=== PATIENT | male | born 1975 | race Caucasian/White ===

== ENCOUNTER 2018-01-26 09:30 | Inpatient (IN) | payer OTHER ==
[~2018-01-26] VITALS: Ht 193 cm; Wt 136.7 kg
--- NOTE | 2018-01-26 09:39 | ED PSYCHIATRIC COMPLAINT ---
History of Present Illness General Chief Complaint: Psychiatric Related Complaint Stated Complaint: DEPRESSION Source: patient, old records, EMS Exam Limitations: no limitations Vital Signs & Intake/Output Vital Signs & Intake/Output Vital Signs Date Time Temp Pulse Resp B/P B/P Pulse O2 O2 Flow FiO2 Mean Ox Delivery Rate 01/26 1417 98.2 86 18 127/61 96 Room Air 01/26 0946 98.8 95 18 160/81 95 Room Air Allergies Coded Allergies: No Known Allergies (01/26/18) Triage Nurses Notes Reviewed? yes HPI: Patient presents with increasing depression, suicidal thoughts and racing thoughts worsening over the past few weeks. Patient states he has been intermittently compliant with his medications. Patient also states that he has had a sharp pain to the left anterior portion of his chest that has been constant for the past 2 days. There is no radiation. No aggravating or mitigating factors. He denies any shortness of breath. He rates the pain as moderate on the pain scale. (Juanpablo GIBBONS,Sander Solorio) Past History Medical History Any Pertinent Medical History? see below for history Cardiovascular: CAD, hypertension, hyperlipidemia Psychiatric: schizophrenia Surgical History Surgical History: non-contributory Psychosocial History Tobacco Use: Never used ETOH Use: denies use Illicit Drug Use: denies illicit drug use Family History Hx Contributory? No (Juanpablo GIBBONS,Sander Solorio) Review of Systems Review of Systems Constitutional: Reports: no symptoms. EENTM: Reports: no symptoms. Respiratory: Reports: no symptoms. Cardiovascular: Reports: see HPI, chest pain. GI: Reports: no symptoms. Genitourinary: Reports: no symptoms. Musculoskeletal: Reports: no symptoms. Skin: Reports: no symptoms. Neurological/Psychological: Reports: see HPI. Hematologic/Endocrine: Reports: no symptoms. Immunologic/Allergic: Reports: no symptoms. All Other Systems: Reviewed and Negative (Juanpablo GIBBONS,Sander Solorio) Physical Exam Physical Exam General Appearance: well developed/nourished, mild distress Head: atraumatic Eyes: Bilateral: PERRL, EOMI. Ears, Nose, Throat: normal pharynx, normal ENT inspection, hearing grossly normal Neck: normal inspection, supple Respiratory: normal breath sounds, chest non-tender, no respiratory distress, lungs clear Cardiovascular: regular rate/rhythm Gastrointestinal: normal bowel sounds, soft, non-tender Extremities: normal range of motion Neurological/Psychiatric: no motor/sensory deficits, awake, alert, calm, oriented x 3 Appearance/Memory/Insight: appropriate appearance, appropriate insight Behavoir/Eye Contact/Speech: cooperative, increased rate of speech, good eye contact Thoughts/Hallucinations: RACING THOUGHTS Skin: intact, normal color, warm/dry SAD PERSONS Done? CRISIS CONSULT OBTAINED (Juanpablo GIBBONS,Sander Solorio) Progress Differential Diagnosis: drug intoxication, drug overdose, drug withdrawal, electrolyte abnormality Plan of Care: Orders Procedure Date/time Status Heart Healthy Diet 01/26 L Active TROPONIN LEVEL 01/26 1447 Complete EKG 01/26 144 Active Continuous Observation Monitor 01/26 937 Active URINE DRUGS OF ABUSE 01/26 937 Complete TROPONIN LEVEL 01/26 937 Complete ETHANOL 01/26 937 Complete COMPREHENSIVE METABOLIC PANEL 01/26 937 Complete CBC WITHOUT DIFFERENTIAL 01/26 937 Complete EKG 01/26 937 Active ED CRISIS PSYCH CONSULT 01/26 937 Active Current Medications Sig/Kenny Start time Last Medication Dose Stop Time Status Admin Lorazepam 1 MG ONE ONE 01/26 1515 CAN (Ativan) 01/26 1516 Laboratory Tests 01/26/18 1451: Troponin I < 0.01 01/26/18 1414: Urine Opiates Screen < 100, Methadone Screen 44, Barbiturate Screen < 60, Ur Phencyclidine Scrn < 6.00, Amphetamines Screen < 100, U Benzodiazepines Scrn 188 , Urine Cocaine Screen 72, Urine Cannabis Screen < 5.00 01/26/18 0959: Anion Gap 9, Estimated GFR > 60, BUN/Creatinine Ratio 22.5, Glucose 87, Calcium 9.9, Total Bilirubin 0.5, AST 20, ALT 25, Alkaline Phosphatase 52, Troponin I < 0.01, Total Protein 7.4, Albumin 4.7, Globulin 2.7, Albumin/Globulin Ratio 1.7, CBC w Diff NO MAN DIFF REQ, RBC 5.40, MCV 89.4, MCH 29.9, MCHC 33.4, RDW 13.6, MPV 7.7, Gran % 55.0, Lymphocytes % 29.3, Monocytes % 12.2 H, Eosinophils % 2.9 , Basophils % 0.6, Absolute Granulocytes 3.9, Absolute Lymphocytes 2.1, Absolute Monocytes 0.9 H, Absolute Eosinophils 0.2, Absolute Basophils 0, Serum Alcohol < 10.0 Initial ED EKG: SR, 1MM ST ELEVATION ANTERIOR, NO ST DEPRESSIONS, NO OLD TO COMPARE Rhythm Strip: normal sinus rhythm Hand-Off Endorsed To: Stef Martinez DO Endorsed Time: 1300 Pending: consult Comments: Pain is been constant for 2 days. The patient states that it is remained at the same intensity. It is not accentuated in intensity and there is been no time over the 2 days that he's been without pain. His first enzymes are negative. If this chest pain were secondary to a cardiac event status troponin should've been elevated by this time. (Juanpablo GIBBNOS,Sander Solorio) Departure Departure Disposition: STILL A PATIENT Condition: Stable Clinical Impression Primary Impression: Schizophrenia Secondary Impressions: Chest pain, unspecified Departure Forms: Customer Survey General Discharge Information (Juanpablo GIBBONS,Sander Solorio) Departure Comments 01/26/18 4;32PM The patient was signed out to me by Dr. Geronimo. He is pending disposition and evaluation by crisis. (Stef Martinez DO)
[2018-01-26 10:07] LABS: ABSOLUTE BASOPHIL COUNT 0 /CUMM (0.0-0.2); ABSOLUTE EOSINOPHIL COUNT 0.2 /CUMM (0.0-0.7); ABSOLUTE GRANULOCYTE CT 3.9 /CUMM (1.4-6.5); ABSOLUTE LYMPH COUNT 2.1 /CUMM (1.2-3.4); ABSOLUTE MONOCYTE COUNT 0.9 /CUMM (0.10-0.60); BASOPHIL % 0.6 % (0.0-2.0); EOSINOPHIL % 2.9 % (0-5); HEMATOCRIT 48.3 % (42-52); MEAN CORPUSCULAR HGB 29.9 PG (27.0-31.0); MEAN CORPUSCULAR HGB CONC 33.4 G/DL (33.0-37.0); MEAN CORPUSCULAR VOLUME 89.4 FL (80.0-94.0); MEAN PLATELET VOLUME 7.7 FL (7.4-10.4); PLATELET COUNT 225 /CUMM (130-400); RBC DISTRIBUTION WIDTH 13.6 % (11.5-14.5); WHITE BLOOD CELL COUNT 7.1 /CUMM (4.8-10.8)
--- NOTE | 2018-01-26 15:01 | ED PSY CRISIS COLLATERAL NOTE ---
Collateral Note Collateral Note Family/Inform/Makayla Contacts: Nursing Home Manager spoke to Keyonna Beard LCSW at [facility] . Pt came in for an intake appointment and reported auditory hallucinations and suicidal ideations. pt states "I want to " he also reports sleep difficulty explaining he hasn't slept in five days. Pt presented with anxious feeling, shaking, with racing thoughts. Pt endorsed suicidal ideation with no plan. Also he mentioned he lived with his elderly aunt in [place] in Senior Disabled housing and he was asked to leave or they both would be evicted. Pt chose to leave and now he is homeless. 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 Pt states that he is clean and sober today as he was just released from [facility], his length of stay was 50 days.
--- NOTE | 2018-01-26 15:18 | ED PSYCH CRISIS CONSULTATION ---
Crisis Consult Basic Assessment Date of Consult: 01/26/18 Responsible Person/Accompanied By: Self Insurance Authorization: Insurance #1: Insurance name: SEBASTIAN GUPTA Phone number: Policy number: [id number] Group number: Authorization number: ED Provider: Patient's ED Provider: Stef Martinez DO Primary Care Physician: Patient's PCP: Patient Has No Primary Care Dr PCP's Phone Number: Current Psychiatrist: Nasir Paez MD Chief Complaint: Psychiatric Related Complaint Patient's Quote: I'm still anxious and I have racing thoughts I don't want to live anymore" Present Illness: Pt is a 42 year old male BIBA from [facility]. Pt was sent to the ED by Keyonna Beard from [facility]. Pt was at [facility] today for an intake and he endorsed suicidal thoughts. Pt reports having auditory hallucinations, " I constantly hear 3 voices all at the same time". Pt states my thoughts are racing and "I don't want to live anymore". Pt does not have a plan and denies any suicide attempt in the past. Precipitant, multiple stressors and an exhausterbation of psychotic symptoms. Pt reports he was living with his elderly aunt in Senior Disabled Housing in [place] and he was asked to leave to avoid his aunt being evicted from her home. Pt states last year he had open heart surgery (triple bypass) after 5 heart attacks. Pt states "my heart is functioning at 30%". Pt reports he hasn't slepted in 5 days and he is constantly feeling anxious. Pt was alert and oriented. He reports feeling anxious, scared, lost, helpless and depressed. "I'm still anxous with racing thoughts and I have nowhere to live " he said. Pt continued to reports hearing voices and feeling suicidal. Pt reports he was discharged from [facility] treatment program on 01/23/18. He spent 50 days at [facility] and before that he was at [facility] twice for psychotic symptoms. He was discharged to [facility] in [place] but he did not attend the program. Also, he reports he was referred to [facility] for skilled nursing care and he "couldn't get in". Pt reports he has a history of the following diagnoses Schizophrenia Bipolar Type, ADHD, and PTSD. Pt states he is prescribed the medication Xanax XR for anxiety. Pt is requesting inpatient admission to address the symtoms of racing thoughts and AH, along with the worsening depression and sucidal ideation. Patient's Address: [address] [place] [address] Other Phone Number: Who Do You Live With? Other (see notes) (Homeless) Family/Informants Interviewed: Phone contact with Care worker see collateral note. Allergies - Coded Allergies: No Known Allergies (01/26/18) Laboratory Results: Laboratory Tests 01/26/18 1451: Troponin I Pending 01/26/18 1414: Urine Opiates Screen < 100, Methadone Screen 44, Barbiturate Screen < 60, Ur Phencyclidine Scrn < 6.00, Amphetamines Screen < 100, U Benzodiazepines Scrn 188 , Urine Cocaine Screen 72, Urine Cannabis Screen < 5.00 01/26/18 0959: Anion Gap 9, Estimated GFR > 60, BUN/Creatinine Ratio 22.5, Glucose 87, Calcium 9.9, Total Bilirubin 0.5, AST 20, ALT 25, Alkaline Phosphatase 52, Troponin I < 0.01, Total Protein 7.4, Albumin 4.7, Globulin 2.7, Albumin/Globulin Ratio 1.7, CBC w Diff NO MAN DIFF REQ, RBC 5.40, MCV 89.4, MCH 29.9, MCHC 33.4, RDW 13.6, MPV 7.7, Gran % 55.0, Lymphocytes % 29.3, Monocytes % 12.2 H, Eosinophils % 2.9 , Basophils % 0.6, Absolute Granulocytes 3.9, Absolute Lymphocytes 2.1, Absolute Monocytes 0.9 H, Absolute Eosinophils 0.2, Absolute Basophils 0, Serum Alcohol < 10.0 Past History Past Medical History Neurological: NONE EENT: NONE Cardiovascular: CAD, hypertension, hyperlipidemia Respiratory: NONE Gastrointestinal: NONE Hepatic: NONE Renal: NONE Musculoskeletal: degen joint disease Psychiatric: anxiety, bipolar disease, depression, psychosis, schizophrenia, SCHIZOAFFECTIVE ADHD Endocrine: NONE Blood Disorders: NONE Cancer(s): NONE 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 Past Surgical History Surgical History: non-contributory Psychosocial History Strengths/Capabilities: Pt motivate for treatment Physical Limitations (Interventions): None reported Psychiatric Treatment History Psych Treatment Psychiatric Treatment Yes Inpatient Treatment Yes Outpatient Treatment Yes Location of Treatment [facility] Reason for Treatment Psychosis Depression Anxiety Dates of Treatment Unknown Response to Treatment Pt did not follow up with IOP recommendation Diagnosis by History: Schizophrenia with Bipolar Disorder ADHD PTSD Substance Use/Abuse History Drug Use/Abuse Substances Used/Abused Yes Substance Used/Abused Crack Cocaine First Use Age 17 Last Used 2 months ago How much used/taken Unknown How often Daily For how long On and off for years Route of use Smoke Substance Abuse Treatment Substance Abuse Treatment Past Substance Abuse TX Yes Inpatient Treatment Yes Outpatient Treatment No Location of Treatment [place] Reason for Treatment Crack Cocaine Use Dates of Treatment November, Response to Treatment Pt did not follow up with IOP recommendation. Current Mental Status Mental Status Orientation: Person, Place, Situation Affect: Anxious, Depressed, Hopeless, Lonely, Sad Speech: Mumbled, Soft Neuro-vegetative: Helpless, Sleep Disturbance Appearance Appearance- Dress/Hygiene: Unshaven, not groomed poor hygiene Behaviors Thought Process: Disorganized Thought Content: Auditory Hallucinations, Somatic Memory: WNL Insight: Fair SI/HI Risk Assessment Past Suicidal Ideation/Attempts Yes Current Suicidal Ideation/Att Yes Past Homicidal Ideation/Att: No Current Homicidal Ideation/Attempts No Degree of Intent: States Intent Danger To: Self Gravely Disabled: Poor Judgment Risk Factors: chronic/serious med cond., high anxiety/distress, SA/MH hospitalized, substance abuse, male, limited support Lethality Ratin PTSD Checklist PTSD Score: PTSD Score: Response Value Disturbing memories,thoughts,images of stressful experience? Moderately 3 Disturbing dreams of stressful experience from past? Moderately 3 Suddenly acting/feeling as if reliving stressful experience? Moderately 3 Unpleasant feeling when reminded of stressful experience? Moderately 3 Physical reactions when reminded of stressful experience? Moderately 3 Avoid thinking/talking of stressful exp. to avoid reactions? Moderately 3 Avoid activities/situations that remind of stressful exp.? Moderately 3 Trouble remembering important parts of stressful experience? Moderately 3 Loss of interest in things that you used to enjoy? Moderately 3 Feeling distant or cut off from other people? Moderately 3 Feeling emotionally numb/unable to love those close to you? Moderately 3 Feeling as if your future will somehow be cut short? Moderately 3 Trouble falling or staying asleep? Moderately 3 Feeling irritable or having angry outbursts? Moderately 3 Having difficulty concentrating? Moderately 3 Being super alert or watchful on guard? Moderately 3 Feeling jumpy or easily startled? Moderately 3 Total 51 ED Management Sitter: No Restraints: No DSM5/PS Stressors/Medical Prob Diagnosis' (DSM 5, Stressors, Medical): F32.9 Depressive Disorder Unspecified, F29 Schizophrenia spectrum and other psychotic disorders Hypertension, Hyperlipidemia, CAD, Hx of Triple Bypass Surgery Current GAF: 20 Departure Disposition Psych Medical Clearance Date: 01/26/18 Medically Cleared at: 1000 Time Started: 1425 Time Ended: 1445 Psychiatrist Consulted: Nasir Paez MD Date Disposition Established: 01/26/18 Time Disposition Established: 170 Plan for Disposition - Modality: Inpatient Psychiatry Facility: [facility] Follow-up Appt Date: 01/26/18 Follow-Up Appt Time: 1900 Contact: [facility] Telephone: [phone] Rationale for Disposition: Pt presents to the ED with suicidal ideation with symptoms of severe depression anxiety racing thoughts and reports of hearing voices. Pt meets criteria for inpatient admission. Type of IP Admission: Voluntary Referrals Patient Has No Primary Care Dr (PCP/Family)
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
[2018-01-26 20:03] VITALS: BP 118/87
--- NOTE | 2018-01-26 21:28 | History & Physical ---
General Information and HPI MD Statement: I have seen and personally examined FEI DAVE and documented this H&P. The patient is a 42 year old M who presented with a patient stated chief complaint of difficulty sleeping and hallucinations History of Present Illness: 42 year-old with extensive psychiatric history presents with hallucinations and insomnia x4 days. Significant premature cardiac disease with systolic heart failure (likely ischemic), multiple PCI's in past, and need for emergent CABG x4 just last year in [place], an episode further complicated by sternal wound infection ultimately requiring sternal wound debridement and wound vac placement. Recently moved up here and is essentially homeless. Recently increased with Coreg dose to 12.5 BID, will need repeat echo in about 8 weeks; if EF remains sub 30% he will have AICD placed. 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 Other (with aunt in group home) Primary Language: Solomon Islander Smoking Status: Unknown If Ever Smoked ETOH Use: denies use, occasional use Illicit Drug Use: denies illicit drug use, cocaine Living Will? unknown Employment History Employment Disability Review of Systems Review of Systems Constitutional: Reports: see HPI. Denies: no symptoms. EENTM: Denies: no symptoms. Cardiovascular: Reports: chest pain (occasional with anxiety). Denies: no symptoms. Respiratory: Denies: no symptoms. GI: Reports: vomiting. Denies: no symptoms. Exam & Diagnostic Data Last 24 Hrs of Vital Signs/I&O Vital Signs Date Time Temp Pulse Resp B/P B/P Pulse O2 O2 Flow FiO2 Mean Ox Delivery Rate 01/26 2003 97.4 92 118/87 01/26 1853 98.1 85 18 130/87 98 Room Air 01/26 1417 98.2 86 18 127/61 96 Room Air 01/26 0946 98.8 95 18 160/81 95 Room Air Intake & Output 01/26 1600 01/26 0800 01/26 0000 Intake Total Output Total 600 Balance -600 Output, Urine 600 Patient 136.078 kg Weight Weight Reported by Patient Measurement Method stable vital sings Physical Exam General Appearance Alert, Oriented X3, Cooperative Skin No Significant Lesion Skin Temp/Moisture Exam: Warm/Dry Sepsis Skin Exam (color): Normal for Ethnicity HEENT Atraumatic, PERRLA, EOMI Neck Supple, No JVD, No thryomegaly Lymphatic Axillary nl, Cervical nl Cardiovascular Normal S1, Normal S2 Lungs Clear to Auscultation Abdomen Soft, No Tenderness, No Hepatospenomegaly, No Masses Neurological Normal Gait, Normal Speech Extremities No Clubbing, No Cyanosis, No Edema Vascular Normal Pulses, Pulses Symmetrical Assessment/Plan Assessment: 42 year-old with extensive psychiatric history presents with hallucinations and insomnia x4 days. Significant premature cardiac disease with systolic heart failure (likely ischemic), multiple PCI's in past, and need for emergent CABG x4 just last year in [place], an episode further complicated by sternal wound infection ultimately requiring sternal wound debridement and wound vac placement. Recently moved up here and is essentially homeless. Recently increased with Coreg dose to 12.5 BID, will need repeat echo in about 8 weeks; if EF remains sub 30% he will have AICD placed. As Ranked By This Provider Problem List: 1. Schizophrenia 2. Chest pain, unspecified Core Measures/Misc (02/19) Acute Coronary Syndrome ACS Diagnosis: No Congestive Heart Failure Congestive Heart Failure Diagnosis No Cerebrovascular Accident CVA/TIA Diagnosis: No VTE (View Protocol) VTE Risk Factors No risk factors No Mechanical VTE Prophylaxis d/t LowRisk-No Interven Req'd No VTE Pharm Prophylaxis d/t LowRisk-No Interven Req'd Sepsis (View protocol) Sepsis Present: No If YES complete Sepsis Event Note If YES complete Sepsis Event Note Attending MD Review Statement Attending Statement Attending MD Statement: examined this patient, reviewed EMR data (avail), discussed with nursing Attending Assessment/Plan: Will continue usual outpatient medications including Coreg 12.5mg BID, aspirin 81mg daily, Plavix 75mg daily, Lasix 20mg daily, spironolactone 12.5mg daily, lisinopril 10mg daily. No evidence of active CAD at this time. Results of evaluation reviewed with nursing on unit.
[2018-01-26] MEDS ORDERED: ALDACTONE25 MG PO (21:35)
[2018-01-26] MEDS ORDERED: NITROGLYCERIN0.4 M1 SL (21:36)
[2018-01-26] MEDS ORDERED: FUROSEMIDE20 M1 PO (21:37)
[2018-01-26] MEDS ORDERED: LISINOPRIL20 M1 PO (21:39)
[2018-01-26] MEDS ORDERED: PRAVACHOL80 M1 PO (21:40)
[2018-01-26] MEDS ORDERED: PROAIR HFA8.5 GM (21:44)
[2018-01-26] MEDS ORDERED: ASPIRIN EC81 M1 PO (21:44)
[2018-01-26] MEDS ORDERED: VIIBRYD40 M1 PO (21:45)
[2018-01-26] MEDS ORDERED: PERPHENAZINE8 M1 PO (21:47)
[2018-01-26] MEDS ORDERED: LATUDA120 M1 PO (21:48)
[2018-01-26] MEDS ORDERED: COREG12.5 M1 PO (21:49)
[2018-01-26] MEDS ORDERED: HYDROXYZINE HCL50 M1 PO (21:50)
[2018-01-26] MEDS ORDERED: GABAPENTIN800 M1 PO (21:51)
[2018-01-26] MEDS ORDERED: NEURONTIN800 M2 PO (21:51)
[2018-01-26] MEDS ORDERED: PLAVIX75 M1 PO (21:52)
[2018-01-26] MEDS ORDERED: STRATTERA PO (21:53)
[2018-01-26] MEDS ORDERED: BUSPIRONE HCL15 M1 PO (21:54)
[2018-01-26] MEDS ORDERED: PROTONIX40 M3 PO (21:55)
[2018-01-26] MEDS ORDERED: MELATONIN10 M2 PO (21:56)
[2018-01-27 07:54] VITALS: BP 128/97
--- NOTE | 2018-01-27 09:06 | CPS PROVIDER INIT ASMT PSYCH ---
Psychiatric Admission It Quality Assurance Analyst's Note Reviewed: Yes Patient Seen and Examined: Yes Identifying Information: Pt is a 42 year old male BIBA from [facility] Chief Complaint: Patient's Quote: I'm still anxious and I have racing thoughts I don't want to live anymore" Reaction to Hospitalization: Patient was admitted voluntarily History of Present Illness Onset of Illness: Since age 17 Circumstances Leading to Admission: Pt is a 42 year old male BIBA from [facility]. Pt was sent to the ED by Keyonna Beard from [facility]. Pt was at [facility] today for an intake and he endorsed suicidal thoughts. Pt reports having auditory hallucinations, " I constantly hear 3 voices all at the same time". Pt states my thoughts are racing and "I don't want to live anymore". Pt does not have a plan and denies any suicide attempt in the past. Precipitant, multiple stressors and an exhausterbation of psychotic symptoms. Pt reports he was living with his elderly aunt in Senior Disabled Housing in [place] and he was asked to leave to avoid his aunt being evicted from her home. Pt states last year he had open heart surgery (triple bypass) after 5 heart attacks. Pt states "my heart is functioning at 30%". Pt reports he hasn't slepted in 5 days and he is constantly feeling anxious. Problem(s) Justifying Need for Admission: See above Past Psychiatric History Past Diagnosis(es)- if any: F32.9 Depressive Disorder Unspecified, F29 Schizophrenia spectrum and other psychotic disorders Hypertension, Hyperlipidemia, CAD, Hx of Triple Bypass Surgery Past Precipitating Factors- if any: Pt reports he was living with his elderly aunt in Senior Disabled Housing in [place] and he was asked to leave to avoid his aunt being evicted from her home. - Include inpatient and outpatient treatment Treatment History: [facility]. Pt reports he was discharged from [facility] treatment program on 01/23/18. He spent 50 days at [facility] and before that he was at [facility] twice for psychotic symptoms. He was discharged to [facility] in [place] but he did not attend the program. 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 History of Suicide Attempts or Gestures Patient has a chronic and recurrent thoughts of suicide but no actual suicide attempts Substance Abuse History: History of crack cocaine use Allergies: Coded Allergies: No Known Allergies (01/26/18) Home Med List: Extensive list of home medications please see the medication reconciliation section part of the medical record - Include any medical condition(s) that may - impact the patient's recovery/remission Past Medical History: History of heart attacks/coronary artery disease and bypass surgery Past History Medical History Neurological: NONE EENT: NONE Cardiovascular: CAD, CHF, hypertension, hyperlipidemia Respiratory: NONE, asthma Gastrointestinal: NONE Hepatic: NONE Renal: NONE Musculoskeletal: degen joint disease Psychiatric: anxiety, bipolar disease, depression, psychosis, schizophrenia, SCHIZOAFFECTIVE ADHD Endocrine: hypoglycemia Blood Disorders: NONE Cancer(s): NONE 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: 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 History of MRSA: No History of VRE: No History of CDIFF: No Isolation History: Standard Surgical History Surgical History: unobtainable Psychiatric Family/Social Hx Family History Psychiatric Illness: no psychiatrist Substance Use: Dad was alcoholic, and gradnparents on both sides Suicides: no suicides Social History Living Situation: homeless as of yesterday Significant Relationships (family/friends): great aunt, 90 and having dementia Education: 1 year of College, in [place] Vocation/Occupation: last wroked Jul 2014, [employer] for 20 years Legal: incarcerate 3 times, no current legal issues Healthly Behaviors Screening Tobacco Screening Tobacco Use from ED Docu: Never used - If tobacco counseling indicated - the following topics are required. - #1 Recognizing dangerous situations. - #2 Coping Skills. - #3 Basic information about quitting. Status of Tobacco Cessation Counseling: Not Applicable Cessation Med Status Not Applicable Alcohol Screening - ETOH screen POS if BAL >=80 or Audit-C>= M4/F3 Audit-C Score from Diag Assess: 2 Blood Alcohol Level: Laboratory Tests 01/26 0959 Toxicology Serum Alcohol (<10 MG/DL) < 10.0 Alcohol Use Screening Results: Neg per Audit C &/or BAL - If ETOH counseling indicated - the following topics are required. - #1 Express concern about the patient's - drinking at unhealthy levels, include informing - of national norms for moderate drinking: - men <= 14 drinks/week, max 4 drinks/occasion - women <= 7 drinks/week, max 3 drinks/occasion - #2 Providing feedback, including linking alcohol to - negative physical effects (liver injury, hypertension) - negative emotional effects (relationship problems and - depression) - negative occupational consequences (reduced work - performance) - #3 Advising the patient to abstain from alcohol or - to drink below national norms for moderate drinking - (as listed above). Status of ETOH Use Counseling: N/A B/C NO ETOH Use Metabolic Screening - Screen if on a Neuroleptic Medication - Metabolic screening should include: - Blood Pressure, BMI, Glucose or Hgb A1c, & a - Lipid profile from within the past 365 days. Metabolic Screening Patient on a neuroleptic(s) . Enter below results for Hemoglobin A1C, and lipid panel if obtained during the last 365 days. BMI: 36.600 Blood Pressure: 107/62 Laboratory Results From [facility] (If applicable): will be ordered Exam and Plan Mental Status Examination Ambulation Status: Patient was steady in his gait Appearance: Unremarkable Attitude towards examiner: Calm and cooperative Psychomotor activity: Reduced psychomotor activity Behavior: No abnormal or bizarre behaviors Quality of speech: Normal speech Affect: Constricted affect Mood: Depressed mood Suicidal Ideation: He reported having thoughts of suicide Homicidal Ideation: He denied having violent thoughts or thoughts of homicide Hallucinations: He endorsed auditory hallucinations Paranoid/Delusional Material: Denied feeling paranoid, there were no delusions during the interview Difficulties with thought organization: He was coherent, no thought disorder Insight: Partial insight Judgment: Impaired judgment Orientation: Alert and oriented to time place and person. Cognition: No difficulties with information processing Memory Function: No short-term memory impairments Estimate of intellectual functioning: Average Assets/Strengths Patient Identified Assets/Strengths: Patient is resourceful, seems to have good impulse control Impression/Plan Impression and Plan: 42-year-old single white male who was admitted because of reporting auditory hallucinations and thoughts of suicide. The presentation is suspicious because the patient's found himself homeless a day or 2 ago after he found out that he could not stay with his aunt who has subsidized housing patient does have long history of psychiatric illness and has been with [facility] - Include all active medical diagnosis that require tx DSM 5 Diagnosis(es): F32.9 Depressive Disorder Unspecified, F29 Schizophrenia spectrum and other psychotic disorders Hypertension, Hyperlipidemia, CAD, Hx of Triple Bypass Surgery - Initial Tx Plan for Active Psych & Medical Conditions Treatment Plan: Inpatient psychiatric care with safety checks every 15 minutes Increase Trilafon to 8 mg in the morning and 60 mg at bedtime Reduce Latuda to 80 mg suppertime Discontinue BuSpar Discontinue Strattera Otherwise resume all medications as per his outpatient providers - Factors that would help patient function - in a less restrictive setting. Factors: The patient would be discharge once he denies suicidal ideation
[2018-01-27 20:08] VITALS: BP 121/77
--- NOTE | 2018-01-27 21:09 | SOCIAL WORKER PROG NOTE PSYCH ---
Social Work Progress Note Progress Note Attempted to complete Social history with patient. Patient was asleep and did not respond to verbal request to wake up and complete social at this time.
--- NOTE | 2018-01-28 08:36 | CP SOUTH PROGRESS NOTE PSYCH ---
Psych (Inpt) Progress Note Progress Note Laboratory Tests 01/28 Chemistry Hemoglobin A1c (4.2 - 5.8 %) Pending Triglycerides (<150 mg/dL) 365 H Cholesterol (< 200 MG/DL) 254 H LDL Cholesterol, Calc (65 - 129 mg/dL) 139 H HDL Cholesterol (40 - 60 mg/dL) 42 Cholesterol/HDL Ratio (0.00 - 4.88 %) 6 H Vital Signs Date Time Temp Pulse Resp B/P B/P Pulse O2 O2 Flow FiO2 01/28 1216 97.5 92 18 12201/28 0855 97.5 92 18 12201/28 0854 97.5 92 18 12201/28 0854 97.5 92 18 12201/28 0846 97.5 92 01/27 2223 99 12177 01/28 2008 98.0 99 Mental Status Examination The patient is still complaining about feeling hopeless and depressed. He also reports high anxiety. Patient was steady in his gait He showed dysphoric constricted affect. He was calm and cooperative He showed reduced psychomotor activity No abnormal or bizarre behaviors Normal speech He reported having thoughts of suicide, denied having violent thoughts or thoughts of homicide He is still claiming that he is having auditory hallucinations. Denied feeling paranoid, there were no delusions during interview. Partial insight Impaired judgment Alert and oriented to time place and person. No difficulties with information processing No short-term memory impairments Assessment: 42-year-old single white male who was admitted because of reporting auditory hallucinations and thoughts of suicide. The presentation is suspicious because the patient found himself homeless a day or 2 prior to presenting to the emergency department. He found out that he could not stay with his aunt who has subsidized housing patient does have long history of psychiatric illness and has been with [facility] Diagnosis(es): By history: Schizophrenia spectrum and other psychotic disorder Hypertension, Hyperlipidemia, CAD, Hx of Triple Bypass Surgery Treatment Plan: He was asking for trazodone, Adderall, and Xanax, he reported that he has been on it for very long time, I tried educating him about the risk of QTC prolongation with his cardiac history to no avail Restart trazodone at 100 mg at bedtime Increase lisinopril to 20 mg daily One-time dose of Librium 50 mg times once Change gabapentin to 900 mg in the morning, 900 afternoon and 1800 mg at bedtime Continue Trilafon 8 mg in the morning and 16 mg at bedtime Latuda 80 mg suppertime Continue all other medications unchanged
[2018-01-28 08:46] VITALS: BP 122/82
[2018-01-28 22:02] VITALS: BP 98/59
[2018-01-29 07:50] VITALS: BP 108/70
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
--- NOTE | 2018-01-29 15:24 | SOCIAL WORKER PROG NOTE PSYCH ---
Social Work Progress Note Progress Note Marco presented with a depressed/ anxious presentation today. He reports feeling hopeless and helpless about his current situation. He reports being recently homeless with no income. States he doesn't know how to help himself anymore and he just feels like giving up and "ending it." Reports not feeling safe on the unit, but states he won't harm himself here and would talk to someone if needed. Feels distressed over voices he is hearing. Reports hearing 3 voices that are "tearing me down." Reports that they say negative comments to him throughout the day. Marco states he feels like he is going to have a "break down" either mentally or he is going to have another heart attack. He has a hx of significant heart problems having had several heart attacks starting in his late 's. He had open heart surgery last February. He reports he gets turned down by programs due to them having concerns about him medically. He shared that he came up from [place] in October to help his Aunt. He was living with his Mother previously. He was supposed to stay at a [facility], but then the friend ended up having to move and he needed to leave and was left with no where to go. Reports staying with his Aunt for a brief time, but she can't have anyone in there due to rules of senior housing. He reports having no other supports at this time. He said his Mother in [facility] is not speaking to him, due to his relapse on crack cocaine. He has been clean for the past 50 days after getting tx at [facility]. He stated that he only uses to get rid of the voices and when he is on his meds he is doing well. Appears distressed today and highly anxious- rating anxiety at a 9 1/2 out of 0-10, 10 being most severe. States his mind is racing and he is having chest pains. Encouraged him to focus on the present as he is becoming overwhelmed with thinking about everything he has going on. He signed releases for his city attorney, [facility], and [facility].
--- NOTE | 2018-01-29 16:39 | CP SOUTH PROGRESS NOTE PSYCH ---
Psych (Inpt) Progress Note Progress Note Include the following elements, when applicable: Involvement in the active treatment of the patient with behavioral observations of the patient and the patient's response to the treatment. Review of the ongoing treatment process in the context of the treatment plan. Indication of how multi-disciplinary staff members are carrying out the treatment plan. Plans for future interventions and recommendations for revision of the treatment plan. Liaison with other physicians/providers. Progress Note: ["The voices keeps screaming at me" The patient reports ongoing auditory hallucinations of 3 male voices which speak to him in the second person and argue with each other. They are not command. They tell him "everything that it ever done in my life". The patient reports that he does not want to live anymore but he has no plans by which to take his own life whilst in hospital. He reports "I have lost everything, I cannot look after myself, I have no home, no job and I feel worthless". The patient reports a long psychiatric history. He was doing well while in [place] but left when her friend asked him to move to [place]. His friend apparently then sold his house leaving the patient homeless. The patient lives with his aunt for a time but she is in senior housing and so he again had to move. He became homeless the day of presentation. The patient reports that he does best on a combination of Latuda 160 mg, Seroquel 200 mg, Viibryd 40 mg, Adderall 30 mg 3 times a day and Xanax XR 3 mg twice daily. The patient reports significant legal difficulties. There is a warrant for his arrest for balance checks in [place] and he is also being investigated for elder financial abuse in [place]. The patient has a history of alcohol and cocaine dependence. He has been clean from both for 51 days and denies any cravings. Mental status examination: The patient is an obese 42-year-old male who looks older than his stated age. He was encountered lying on his hospital bed. He was alert and oriented 3 and his gait was steady. Eye contact was good. Speech was normal in rate, rhythm and volume, monotonous. He described his mood as anxious and his affect was mood congruent. There was suicidal ideation but no intent. Thought process was normal in tempo and stream, concrete and form. There were no delusions or obsessions. Attention and concentration were fair. There were auditory hallucinations although the patient was not distracted during the time of interview. Impulse control is fair. Intelligence level is likely average, fund of knowledge average, use of language appropriate. Recent and remote memory were intact. The patient's insight is good. Judgment is unimpaired.] Assessment: 42-year-old mal with a history of schizoaffective disorder maintained on multiple medications. Presented with increase in mood and psychosis in the context of stopping medication due to lack of access to healthcare. The patient is currently homeless. He has suicidal ideation but no intent currently. He reports ongoing auditory hallucinations. The patient has a history of alcohol and cocaine use until 50 days ago. He has significant cardiac history. QTc is 486. Current medications: Albuterol inhaler 2 puffs every 4 hours as needed breathing difficulty Aspirin 81 mg p.o. daily Coreg 12.5 mg p.o. twice daily Chlordiazepoxide 50 mg p.o. nightly Clopidogrel 75 mg p.o. daily Diazepam 10 mg p.o. nightly Furosemide 20 mg p.o. daily Gabapentin 900 mg twice a day and 1800 mg p.o. nightly Lisinopril 20 mg p.o. daily Lurasidone 80 mg at 1730 Metoprolol 25 mg p.o. twice daily Nicotine 21 mg patch Nicotine gum 2 mg every 2 hours as needed craving Perphenazine 8 mg p.o. daily and 16 mg p.o. nightly Spironolactone 12.5 mg p.o. daily Trazodone 100 mg p.o. nightly Vilazodone 40 mg p.o. daily Reason for ongoing admission: The patient was suicidal prior to admission. He has ongoing suicidal ideation as well as auditory hallucinations and significant psychosocial stressors. He is at risk of suicide if discharged prematurely. The patient has not been taking medication for some time and needs to be reestablished on a medication regime. Diagnosis: Per notes from his previous providers the diagnoses are: Schizophrenia chronic, paranoid with acute exacerbation Unspecified anxiety disorder Major depressive disorder Treatment plan: -Discontinue both chlordiazepoxide and diazepam as the patient was not on benzodiazepines prior to admission -Consider increasing lurasidone to previous dose of 160 mg -Suggest caution with as needed nicotine gum as the patient is already taking a 21 mg patch and this may increase his agitation -Education on anxiety management -Reduce as needed lorazepam to 1 mg p.o. orally -If the patient is relocating to this area he will need to be connected with [facility] ED on discharge -Patient will be encouraged to call 211 to connect with housing -Tentative discharge date February 02
--- NOTE | 2018-01-29 18:09 | SOCIAL WORKER PROG NOTE PSYCH ---
Social Work Progress Note Progress Note The services requested require additional review. You will be contacted regarding the status of this request if further information is needed. An authorization decision will be made within the required timeframes and details of that decision may be found under the member's authorization history. Member Name Member ID Member Subscriber Name Subscriber ID FEI DAVE [id number] 1975 FEI DAVE [id number] Pended Authorization # Client Authorization # Type of Request [id number] CONCURRENT Date of Admission/ Start of Services Requested From Submission Date 01/26/2018 01/29/2018 01/29/2018 Level of Service Type of Service Level of Care Type of Care INPATIENT/HLOC Mental Health Inpatient Inpatient [facility] - Inpatient Hospital Reason Code P76 Provider Name & Address Provider ID Provider Alternate ID NPI # for Authorization HUMBERTO CARDOZA [id number] N/A [address] [facility] [id number]
[2018-01-29 20:01] VITALS: BP 112/86
[2018-01-30 07:44] VITALS: BP 133/93
--- NOTE | 2018-01-30 15:42 | CP SOUTH PROGRESS NOTE PSYCH ---
Psych (Inpt) Progress Note Progress Note include the following elements, when applicable: Involvement in the active treatment of the patient with behavioral observations of the patient and the patient's response to the treatment. Review of the ongoing treatment process in the context of the treatment plan. Indication of how multi-disciplinary staff members are carrying out the treatment plan. Plans for future interventions and recommendations for revision of the treatment plan. Liaison with other physicians/providers. Progress Note: Patient discussed at team meeting "I am so anxious, I have nowhere to live" The patient reports intense feelings of anxiety. He marisela with them by isolating "I lie on my bed and shake". Sleep was poor last night although he slept most of the day yesterday. His appetite is good. He does not want to . He reports feeling hopeless and worthless. He is overwhelmed by psychosocial stressors. He reports ongoing auditory hallucinations "they just say bad things". They do not tell him what to do. Notes reveals that the patient is given haloperidol this morning for agitation. Mental status examination: Obese 42-year-old male encountered asleep on his bed. Alert and oriented 3, gait steady. Eye contact good. Speech normal in rate, rhythm, volume and tone. He described his mood is anxious, his affect was mildly anxious; as mentioned he was asleep when encountered. He was not suicidal or homicidal. Thought process was normal in tempo and stream. Thought form was concrete. Thought content was preoccupied with housing. There were no delusions or obsessions. There was no evidence of perceptual abnormality in that the patient was not distracted are responding to internal stimuli during interview although he reported auditory hallucinations. Impulse control is fair. Attention and concentration are fair. Intelligence level is likely average, fund of knowledge average, use of language appropriate. The patient's recent and remote memory are intact. Insight is fair, judgment unimpaired. Assessment: The patient continues to report ongoing anxiety. This is mainly around his homelessness. He is isolating and on the periphery. Encouraged to participate more in the group and use distraction techniques to manage his anxiety. He is not suicidal or homicidal. The patient has a pending disability hearing on February 14. Current medications: Albuterol inhaler 2 puffs every 4 hours as needed breathing difficulty Aspirin 81 mg p.o. daily Coreg 12.5 mg p.o. twice daily Clopidogrel 75 mg p.o. daily Furosemide 20 mg p.o. daily Gabapentin 900 mg twice a day and 1800 mg p.o. nightly Lisinopril 20 mg p.o. daily Lurasidone 80 mg at 1730 Metoprolol 25 mg p.o. twice daily Nicotine 21 mg patch Nicotine gum 2 mg every 2 hours as needed craving Perphenazine 8 mg p.o. daily and 16 mg p.o. nightly Spironolactone 12.5 mg p.o. daily Trazodone 100 mg p.o. nightly Vilazodone 40 mg p.o. daily Reason for ongoing admission: The patient reports feelings of hopelessness and worthlessness. He cannot commit to safety outside the hospital setting. Treatment plan: -No changes in current medications -Encouraged the patient to participate more in the milieu -Distraction techniques to manage anxiety -sawmill relief worker helping with respite accommodation -Tentative discharge date February 02 with follow-up at IOP level of care -
--- NOTE | 2018-01-30 16:19 | SOCIAL WORKER PROG NOTE PSYCH ---
See Addendum Social Work Progress Note Progress Note Marco reported high anxiety today. Stated he is worried about [facility]. We called [facility] together to see about the half-way wait list. We spoke with a gentleman named Roge. He said he is on the active wait list for a half-way, but there is very little turn over. He said to continue to check in with Emily there when she returns from vacation. He had no other suggestions other than to go to [facility]. He would need to be there late afternoon and leave every day at 6am. Marco and I discussed this as an option afterwards and he doesn't feel he can do a half-way where he needs to leave every day at 6am due to his heart condition. He is worried about where he would spend the day and doesn't feel he can do alot of walking. Continues to look hopeless and helpless. Keeps stating he needs help navigating the system. Stated several times "I can't do this anymore."
[2018-01-30 19:49] VITALS: BP 124/79
[2018-01-31 07:57] VITALS: BP 146/98
[2018-01-31 08:18] VITALS: BP 146/98
--- NOTE | 2018-01-31 11:04 | SOCIAL WORKER PROG NOTE PSYCH ---
Social Work Progress Note Progress Note Marco approached staff this morning and shared that his Aunt and him talked and she is allowing him to go live with her temporarily. He stated he wanted to go today. Dr. Joe and I saw Emma together briefly. He was in his room resting. He shared that his Aunt had called him last night and they talked about him staying with her. He reported that he is feeling much better now that he knows he has a place to stay and that he is safe to leave. Described voices as still there, but managable. States the voices are chronic and he is used to living with them. He is happy to return to [facility] for an intake. Offered to call his Aunt with him and he agreed. He called his Aunt Alyssa and put her on speak phone. She explained that she is agreeable to have him stay with her and see how things work out with his disability hearing on 02/14. She doesn't feel it is a problem for him to be with her and described that her and him have a Mother/ son relationship. She asked who would be helping him with housing once he leaves? I told her that he will be referred to [facility] and that they have clinical staff and case management there. She stated that Marco helps her out around the house and that they help eachother. She is 89. She mentioned that her neighbor will roller picker Marco from the hospital today. We planned a time for 1pm. Referral was done for [facility]. Intake is scheduled with Loreta Oconnell Phd. on 02/06 2pm. He will have a "bridge" appt. with Gera GAITAN on 02/09 8:15am with Dr. Case.
--- NOTE | 2018-01-31 12:10 | Patient Discharge Instructions ---
Psych Discharge Inst General Discharge Information Reason for Admission: Suicidal with excerbation of psychosis Psy Discharge Primary Diag+ Schizophrenia Summary Tests/Major Procedures Lab ALT 25 U/L 01/26/18 0959 AST 20 U/L 01/26/18 0959 Albumin 4.7 g/dL 01/26/18 0959 Albumin/Globulin Ratio 1.7 % 01/26/18 0959 Alkaline Phosphatase 52 U/L 01/26/18 0959 Anion Gap 9 01/26/18 0959 BUN 18 mg/dL 01/26/18 0959 BUN/Creatinine Ratio 22.5 % 01/26/18 0959 Calcium 9.9 mg/dL 01/26/18 0959 Carbon Dioxide 23 mmol/L 01/26/18 0959 Chloride 106 mmol/L 01/26/18 0959 Cholesterol 254 MG/DL H 01/28/18 0638 Cholesterol/HDL Ratio 6 % H 01/28/18 0638 Creatinine 0.8 mg/dL 01/26/18 0959 Estimated GFR > 60 ml/min 01/26/18 0959 Globulin 2.7 gm/dL 01/26/18 0959 Glucose 87 mg/dL 01/26/18 0959 HDL Cholesterol 42 mg/dL 01/28/18 0638 LDL Cholesterol, Calc 139 mg/dL H 01/28/18 0638 Potassium 4.8 mmol/L 01/26/18 0959 Sodium 138 mmol/L 01/26/18 0959 Total Bilirubin 0.5 mg/dL 01/26/18 0959 Total Protein 7.4 g/dL 01/26/18 0959 Triglycerides 365 mg/dL H 01/28/18 0638 Troponin I < 0.01 ng/ml 01/26/18 0959 CBC w Diff NO MAN DIFF REQ 01/26/18 0959 Gran % 55.0 % 01/26/18 0959 Hct 48.3 % 01/26/18 0959 Hgb 16.1 G/DL 01/26/18 0959 MCH 29.9 PG 01/26/18 0959 MCHC 33.4 G/DL 01/26/18 0959 MCV 89.4 FL 01/26/18 0959 MPV 7.7 FL 01/26/18 0959 Plt Count 225 /CUMM 01/26/18 0959 RBC 5.40 /CUMM 01/26/18 0959 RDW 13.6 % 01/26/18 0959 WBC 7.1 /CUMM 01/26/18 0959 Studies Pending at DC: None Patient Instructions Contact Information Your Psychiatrist on [facility] was Michelle Joe MD * If you are experiencing an emergency related to this hospitalization, please call [phone] to contact the treating psychiatrist or the psychiatrist-on- call. * To Request a copy of your medical records, please contact the Medical Records Department at [phone]. * To request results of studies pending at the time of discharge, please call [phone]. * Continue your Medications until directed to stop by your Healthcare provider. General Medication Information Please continue to take your new medications and your continued home medications , unless otherwise indicated on your discharge medication list, or unless directed by your MD or BOILER ATTENDANT to stop them. Special Instructions Diet Regular Activity As Tolerated - Tobacco Use Treatment Offered Post DC Medications Offered: Refused Tob Medication Tx Post DC Tobacco Treatment Plan: Refused Tobacco Tx Pgm - EtOH/Drug Use D/O Treatment Offered Post DC Medications Offered: NA-No EtOH/Drug Use D/O Post DC EtOH/SubAbuse TX Plan: NA-No EtOH/Drug Use D/O Advance Directives Does the Patient have Medical Advance Directives No/Refused further info Does Pt have Psychiatric Advance Directives? No/Refused further info Does Patient have a Designated Surrogate Decision Maker: No Information About Psychiatric Advance Directives Provided? Refused Discharge Plan Post Hospital Treatment Plan: Referrred to [facility]
--- NOTE | 2018-01-31 12:10 | DISCHARGE SUMMARY REPORT-PSYCH ---
Visit Information Visit Dates/Diagnosis' Admission Date: 01/26/18 Discharge Date: 01/31/18 Reason for Admission: Suicidal with excerbation of psychosis Psy Discharge Primary Diag: Schizophrenia Hospital Course Significant Lab Findings: Lab Cholesterol 254 MG/DL H 01/28/18 0638 Cholesterol/HDL Ratio 6 % H 01/28/18 0638 HDL Cholesterol 42 mg/dL 01/28/18 0638 Hemoglobin A1c 5.7 % 01/28/18 0638 LDL Cholesterol, Calc 139 mg/dL H 01/28/18 0638 Sodium 138 mmol/L 01/26/18 0959 Triglycerides 365 mg/dL H 01/28/18 0638 Course Consultations: Seen by hospitalist for full review of systems and physical examination on admission Allergies: Coded Allergies: No Known Allergies (01/26/18) Hospital Course/TX Response: The patient presented to the emergency room reporting suicidal ideation and increased psychotic symptoms in the context of homelessness. The patient had been made homeless on the day of presentation. The patient was admitted on a voluntary basis and he is routine medications were recommenced. Routine lab studies were normal. The patient reported auditory hallucinations but did not seem distracted or preoccupied. He later reported that he constantly has auditory hallucinations which are generally not distressing to him. He was extremely anxious during this brief admission and reported that this was mostly due to housing. He spent a lot of time isolated in his room. He was very focused on being homeless and applying for disability. He ate well and was pleasant and appropriate with staff and peers. ADLs were good. Referrals were made and the patient was [facility] at [facility]. On January 31 the patient informed staff that she had contacted his aunt the previous evening and that she had permission for him to live with her while he was waiting for a bed. The patient reported a significant reduction in anxiety and requested discharge. As he was not a harm to himself or others and was not gravely disabled it was agreed that he be discharged to his own home and follow-up with [facility]. As there is significant interval before medication appointment can be made at that facility, he will be given bridging appointment at [facility] outpatient department. At the time of discharge the patient was alert and oriented 3. Eye contact was good, speech was normal in rate, rhythm, volume and tone. He was not suicidal or homicidal. He had baseline auditory hallucinations which were not distressing to him. Thought process was organized. Insight was good and he was motivated for treatment. Discharge HBIPS - Tobacco Use Treatment Offered Post DC Medications Offered: Refused Tob Medication Tx Post DC Tobacco Treatment Plan: Refused Tobacco Tx Pgm - EtOH/Drug Use D/O Treatment Offered Post DC Medications Offered: NA-No EtOH/Drug Use D/O Post DC EtOH/SubAbuse TX Plan: NA-No EtOH/Drug Use D/O Metabolic Screening - Screen if on a Neuroleptic Medication - Metabolic screening should include: - Blood Pressure, BMI, Glucose or Hgb A1c, & a - Lipid profile from within the past 365 days. Metabolic Screening () Not Applicable, patient not on a neuroleptic. OR () Patient on a neuroleptic(s) . Enter below results for Hemoglobin A1C, and lipid panel if obtained during the last 365 days. BMI: 36.600 Blood Pressure: 146/98 Laboratory Results From [facility] EHR (If applicable): Lab Cholesterol 254 MG/DL H 01/28/18 0638 Cholesterol/HDL Ratio 6 % H 01/28/18 0638 HDL Cholesterol 42 mg/dL 01/28/18 0638 Hemoglobin A1c 5.7 % 01/28/18 0638 LDL Cholesterol, Calc 139 mg/dL H 01/28/18 0638 Triglycerides 365 mg/dL H 01/28/18 0638 Discharge Instructions General Discharge Information Multiple Neuroleptics: () Not Applicable OR Document below three failed attempts at monotherapy, or a plan to taper to monotherapy, or augmentation of Clozapine. (The patient has been on 2 neuroleptics for some time. The plan will be to optimize the dose of perphenazine and reduce lurasidone as an outpatient. Ultimately he would hopefully be maintained on one neuroleptic only. ) Discharge Diet Regular Discharge Activity As Tolerated DC Disposition: The patient will go to live with his aunt Referrals Ordered Referrals [facility] 02/06/18 [address], [place] [id number] [facility] intake appt. with Loreta Oconnell 02/06/18 2pm [address] [place], [place] [id number] Provider Referral 02/09/18 For Groups: Outpatient Psychiatry [facility] Bridge appt. for medication with Dr. Case 02/09 8:15am [address] [place] [address] Prescriptions Stop taking the following medications: Hydroxyzine Hydrochloride (Atarax) 50 MG TAB ORAL EVERY 4 HOURS NEEDED as needed for ANXIETY Buspirone HCl (Buspirone HCl) 15 MG TABLET ORAL THREE TIMES DAILY Melatonin (Melatonin) 10 MG TABLET ORAL AT BEDTIME Continue taking these medications: Spironolactone (Aldactone) 25 MG TABLET 1 Tablet ORAL DAILY Comments: Last Taken:01/31/18 Time:8AM Nitroglycerin (Nitroglycerin) 0.4 MG TAB.SUBL 0.4 Milligram SUBLINGUAL as needed for CHEST PAIN Comments: Last Taken:NOT GIVEN IN THE HOSPITAL Time: Furosemide (Furosemide) 20 MG TABLET 1 Tablet ORAL TWICE DAILY Comments: Last Taken:01/31/18 Time:8AM Lisinopril (Lisinopril) 20 MG TABLET 1 Tablet ORAL DAILY Comments: Last Taken:01/31/18 Time:8AM Pravastatin Sodium (Pravachol) 80 MG TABLET 80 Milligram ORAL AT BEDTIME Comments: NOT TAKEN IN [facility] Aspirin (Ecotrin*) 81 MG TABLET.DR 81 Milligram ORAL DAILY Comments: Last Taken:01/31/18 Time:8AM Albuterol Sulfate (Proair Hfa) 90 MCG HFA.AER.AD as needed for RESPIRATORY Comments: Last Taken:NOT USED IN THE HOSPITAL Time: Vilazodone (Viibryd) 40 MG TABLET 40 Milligram ORAL DAILY Comments: Last Taken:01/31/18 Time:8AM Perphenazine (Perphenazine) 8 MG TABLET 8 Milligram ORAL TWICE DAILY Comments: Last Taken:01/31/18 Time:8AM Lurasidone HCl (Latuda) 120 MG TABLET 120 Milligram ORAL DAILY Comments: Last Taken:01/30/18 RECEIVED 80MG Time:5PM Carvedilol (Coreg) 12.5 MG TABLET 12.5 Milligram ORAL TWICE DAILY Comments: Last Taken:01/31/18 Time:8AM Gabapentin (Gabapentin) 800 MG TABLET 800 Milligram ORAL TWICE DAILY Comments: Last Taken:01/31/18 Time:8AM Gabapentin (Neurontin) 800 MG TABLET 1,200 Milligram ORAL AT BEDTIME Comments: Last Taken:01/30/18 Time:8PM Clopidogrel Bisulfate (Plavix) 75 MG TABLET 75 Milligram ORAL DAILY Comments: Last Taken:01/31/18 Time:8AM Atomoxetine HCl (Strattera) 10 MG CAPSULE 20 Milligram ORAL DAILY Comments: Last Taken:NOT GIVEN IN THE HOSPITAL Time: Pantoprazole Sodium (Protonix) 40 MG TABLET.DR 40 Milligram ORAL DAILY Comments: Last Taken:01/31/18 SUBSTITUTED WITH PRILOSEC IN THE HOSPITAL Time:8AM Studies Pending at Discharge None Copies To: ,
--- NOTE | 2018-01-31 16:48 | SOCIAL WORKER PROG NOTE PSYCH ---
Social Work Progress Note Faxed Referral(s) Referred To: [facility] Transition of Care Documents sent: Health Summary Faxed to: [facility] Fax #: [phone] Faxed by: Pinky Marquis Date faxed: 01/31/18 Time Faxed: [phone]
== END 2018-01-31 13:00 | DRG 750 ==
LOC: ERH 09:30 → CP SOUTH 18:25 → ERHI 18:25 → ENTRNSPT 19:06 → EDTRNSPT 19:13 → CMPTRNSPT 19:14 → CP SOUTH 19:16
PROVIDERS: Emergency Medicine; Psychiatry & Neurology Psychiatry
DX: F20.9 Schizophrenia, unspecified (principal); I50.22 Chronic systolic (congestive) heart failure; I11.0 Hypertensive heart disease with heart failure; Z59.0 Homelessness; R07.9 Chest pain, unspecified; I25.10 Atherosclerotic heart disease of native coronary artery without angina pectoris; E78.5 Hyperlipidemia, unspecified; J45.909 Unspecified asthma, uncomplicated; Z95.1 Presence of aortocoronary bypass graft
CPT/HCPCS: 36415; 80307; 93005; 93010; G0463; G0480; J0515; J1630; J3490

== ENCOUNTER 2018-02-16 17:34 | Inpatient (IN) | payer OTHER ==
[~2018-02-16] VITALS: Ht 193 cm; Wt 135.7 kg
[~2018-02-16 17:34] MED LIST: ALDACTONE25 MG PO; ASPIRIN EC81 M1 PO; BUSPIRONE HCL15 M1 PO; COREG12.5 M1 PO; FUROSEMIDE20 M1 PO; GABAPENTIN800 M1 PO; HYDROXYZINE HCL50 M1 PO; LATUDA120 M1 PO; LISINOPRIL20 M1 PO; MELATONIN10 M2 PO; NEURONTIN800 M2 PO; NITROGLYCERIN0.4 M1 SL; PERPHENAZINE8 M1 PO; PLAVIX75 M1 PO; PRAVACHOL80 M1 PO; PROAIR HFA8.5 GM; PROTONIX40 M3 PO; STRATTERA PO; VIIBRYD40 M1 PO
--- NOTE | 2018-02-16 17:45 | ED PSYCHIATRIC COMPLAINT ---
History of Present Illness General Chief Complaint: Psychiatric Related Complaint Stated Complaint: PT IS THINKING ABOUT DOING HARM TO HIMSELF Source: patient Exam Limitations: no limitations Vital Signs & Intake/Output Vital Signs & Intake/Output Vital Signs Date Time Temp Pulse Resp B/P B/P Pulse O2 O2 Flow FiO2 Mean Ox Delivery Rate 02/17 0019 97.8 98 129/76 02/16 2100 97.5 49 18 112/73 99 02/16 2045 Room Air 02/16 1743 96.4 106 18 133/86 97 Room Air ED Intake and Output 02/17 0000 02/16 1200 Intake Total Output Total Balance Patient 299 lb Weight Allergies Coded Allergies: No Known Allergies (01/26/18) Triage Nurses Notes Reviewed? yes Onset: Gradual Duration: day(s): Timing: recent history Severity: moderate HPI: 42yo male with hx of CAD s/p CABG and stents, depression, schizoaffective disorder, PTSD presents to ED requesting to be "check into the psych unit". Patient reports worsening SI recently. Last night he thought about overdosing with crack cocaine. Patient was recently discharged from [facility] at the beginning of this week. Since being discharged from [facility] the patient hasn't been compliant with his psych meds, he forgets to take them. He states he hasn't been able to get out of bed. The patient recently attempted overdose by smoking crack which led to his admission at [facility]. The patient admits to auditory hallucinations which are constant. The patient denies HI. (Jocelyn ROBERTSON,Sallie Joyce) Reconcile Medications Albuterol Sulfate (Proair Hfa) 90 MCG HFA.AER.AD RESPIRATORY (Reported) Aspirin (Ecotrin*) 81 MG TABLET.DR 81 MG PO DAILY HEART HEALTH (Reported) Atomoxetine HCl (Strattera) 10 MG CAPSULE 20 MG PO DAILY MENTAL HEALTH ( Reported) Carvedilol (Coreg) 12.5 MG TABLET 12.5 MG PO BID HEART HEALTH (Reported) Clopidogrel Bisulfate (Plavix) 75 MG TABLET 75 MG PO DAILY BLOOD THINNER ( Reported) Furosemide 20 MG TABLET 1 TAB PO BID HEART HEALTH (Reported) Gabapentin 800 MG TABLET 800 MG PO BID MENTAL HEALTH (Reported) Gabapentin (Neurontin) 800 MG TABLET 1,200 MG PO AT BEDTIME MENTAL HEALTH ( Reported) Lisinopril 20 MG TABLET 1 TAB PO DAILY HIGH BLOOD PRESSURE (Reported) Lurasidone HCl (Latuda) 120 MG TABLET 120 MG PO DAILY MENTAL HEALTH (Reported ) Nitroglycerin 0.4 MG TAB.SUBL 0.4 MG SL PRN CHEST PAIN (Reported) Pantoprazole Sodium (Protonix) 40 MG TABLET.DR 40 MG PO DAILY ACID REFLUX ( Reported) Perphenazine 8 MG TABLET 8 MG PO BID MENTAL HEALTH (Reported) Pravastatin Sodium (Pravachol) 80 MG TABLET 80 MG PO AT BEDTIME HIGH CHOLESTROL (Reported) Spironolactone (Aldactone) 25 MG TABLET 1 TAB PO DAILY HEART HEALTH (Reported ) Vilazodone (Viibryd) 40 MG TABLET 40 MG PO DAILY MENTAL HEALTH (Reported) Zolpidem Tartrate (Ambien) (Unknown Strength) TABLET (Unknown Dose) SLEEP HELP (Reported) (Kashif GIBBONS,Shaan Keen) Past History Travel History Traveled to [place] past 21 day No Medical History Any Pertinent Medical History? 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 No (Sallie Hernandez) Review of Systems Review of Systems Constitutional: Reports: no symptoms. EENTM: Reports: no symptoms. Respiratory: Reports: no symptoms. Cardiovascular: Reports: no symptoms. GI: Reports: no symptoms. Genitourinary: Reports: no symptoms. Musculoskeletal: Reports: no symptoms. Skin: Reports: no symptoms. Neurological/Psychological: Reports: see HPI. Hematologic/Endocrine: Reports: no symptoms. Immunologic/Allergic: Reports: no symptoms. All Other Systems: Reviewed and Negative (Sallie Hernandez) Physical Exam Physical Exam General Appearance: well developed/nourished, no apparent distress, alert, awake Head: atraumatic, normal appearance Eyes: Bilateral: normal appearance. Ears, Nose, Throat: hearing grossly normal Neck: normal inspection, supple, full range of motion Respiratory: normal breath sounds, no respiratory distress, lungs clear Cardiovascular: regular rate/rhythm Extremities: normal range of motion Neurological/Psychiatric: awake, alert, normal mood/affect, calm Appearance/Memory/Insight: appropriate appearance, appropriate insight Behavoir/Eye Contact/Speech: cooperative Thoughts/Hallucinations: normal thought pattern, no apparent hallucination Skin: intact, normal color, warm/dry SAD PERSONS SAD PERSONS Response Value Male Sex? yes 1 Depression/Hopelessness? yes 2 Previous Attempts/Psych Care yes 1 Excessive Ethanol/Drug Use? yes 1 Single//? yes 1 Organized/Serious Attempt yes 2 Social Support? has support 0 Stated Future Intent? yes 2 Total 10 SAD PERSONS Done? yes (Jocelyn ROBERTSON,Sallie Joyce) Progress Differential Diagnosis: drug intoxication, drug overdose, electrolyte abnormality, ACS, cocaine induced GA Plan of Care: Orders Procedure Date/time Status Regular Diet 02/17 B Active Vital Signs 02/16 2312 Active Inpt Psych Teach/Educate 02/16 2312 Active Nutritional Intake, Monitor 02/16 2312 Active Inpt Psych Auricular Acupunctu 02/16 2312 Active TROPONIN LEVEL 02/16 2103 Complete EKG 02/16 2103 Active Admit to inpatient psych 02/16 2037 Active Continuous Observation Monitor 02/16 1745 Complete URINE DRUG SCREEN FOR ER ONLY 02/16 1745 Complete URINALYSIS 02/16 1745 Complete TROPONIN LEVEL 02/16 1745 Complete ETHANOL 02/16 1745 Complete COMPREHENSIVE METABOLIC PANEL 02/16 1745 Complete CBC WITHOUT DIFFERENTIAL 02/16 1745 Complete EKG 02/16 1745 Active ED CRISIS PSYCH CONSULT 02/16 1745 Active Intake & Output 02/16 1743 Complete Current Medications Sig/Kenny Start time Last Medication Dose Stop Time Status Admin Gabapentin 400 MG AT BEDTIME 02/17 2100 AC (Neurontin) Pravastatin Sodium 80 MG 1700 02/17 1700 AC (Pravachol) Carvedilol 12.5 MG BID 02/17 09 AC (Coreg) Nicotine 21 MG DAILY 02/17 900 AC (Nicoderm) Perphenazine 8 MG BID 02/17 900 AC (Trilafon 4MG Tablet) Omeprazole 40 MG DAILY AC 02/17 0700 AC (Prilosec) Nitroglycerin 0.4 MG Q 5 MINUTES X 3 DO.. 02/17 0045 AC (Nitrostat) Albuterol Sulfate 2 PUF Q4P PRN 02/17 0030 AC (Ventolin) Laboratory Tests 02/16/18 2139: Troponin I 0.05 02/16/18 1931: Urine Opiates Screen < 100, Methadone Screen < 40, Barbiturate Screen 68, Ur Phencyclidine Scrn < 6.00, Amphetamines Screen < 100, U Benzodiazepines Scrn 661 H, Urine Cocaine Screen > 1000 H, Urine Cannabis Screen < 5.00, Urine Color YEL, Urine Clarity CLEAR, Urine pH 6.0, Ur Specific [place] >= 1.030, Urine Protein NEG, Urine Ketones NEG, Urine Nitrite NEG, Urine Bilirubin NEG, Urine Urobilinogen 0.2, Ur Leukocyte Esterase NEG, Ur Microscopic EXAM NOT REQUIRED, Urine Hemoglobin NEG, Urine Glucose NEG 02/16/18 1751: Anion Gap 13, Estimated GFR > 60, BUN/Creatinine Ratio 22.9, Glucose 169 H, Calcium 9.5, Total Bilirubin 0.5, AST 24, ALT 30, Alkaline Phosphatase 53, Troponin I 0.05, Total Protein 6.6, Albumin 4.4, Globulin 2.2, Albumin/Globulin Ratio 2.0, CBC w Diff NO MAN DIFF REQ, RBC 5.27, MCV 88.4, MCH 29.9, MCHC 33.8, RDW 13.6, MPV 7.8, Gran % 52.9, Lymphocytes % 36.3, Monocytes % 7.7, Eosinophils % 2.6, Basophils % 0.5, Absolute Granulocytes 4.1, Absolute Lymphocytes 2.8, Absolute Monocytes 0.6, Absolute Eosinophils 0.2, Absolute Basophils 0, Serum Alcohol < 10.0 EKG is stable, the patient has no active chest pain. Cocaine screen is elevated. Troponin enzyme 0.05. Will obtain repeat EKG and troponin for further cardiac work up. Remainder of labs are stable. Repeat EKG and troponin enzyme are stable. Per crisis, patient does require psychiatric admission is cleared medically. The patient was signed out to Dr. Rowland pending bed search. Initial ED EKG: SINUS RHYTHM @96BPM, NONSPECIFIC ST CHANGES Prior EKG: unchanged (01/26/18) Repeat EKG: unchanged Hand-Off Endorsed To: Kashif GIBBONS,Shaan Keen Endorsed Time: 2309 Pending: other (bed search) (Sallie Hernandez) Departure Departure Disposition: STILL A PATIENT Condition: Stable Clinical Impression Primary Impression: Suicidal ideation Secondary Impressions: Cocaine abuse Referrals: Patient Has No Primary Care Dr (PCP/Family) Departure Forms: Customer Survey General Discharge Information (Sallie Hernandez) Psych Admission Note Psychiatric Admission: I have seen and evaluated FEI DAVE. I have also reviewed all the pertinent lab results and diagnostic results. FEI DAVE will be admitted to our inpatient Psychiatric unit for treatment and care. PA/CHILD CARE CENTRE DIRECTOR Co-Sign Statement Statement: ED Attending supervision documentation- [x] I saw and evaluated the patient. I have also reviewed all the pertinent lab results and diagnostic results. I agree with the findings and the plan of care as documented in the PA's/CHILD CARE CENTRE DIRECTOR's documentation. [] I have reviewed the ED Record and agree with the PA's/CHILD CARE CENTRE DIRECTOR's documentation. [] Additions or exceptions (if any) to the PAs/CHILD CARE CENTRE DIRECTOR's note and plan are summarized below: [] (Kashif GIBBONS,Shaan Keen)
[2018-02-16 18:04] LABS: ABSOLUTE BASOPHIL COUNT 0 /CUMM (0.0-0.2); ABSOLUTE EOSINOPHIL COUNT 0.2 /CUMM (0.0-0.7); ABSOLUTE GRANULOCYTE CT 4.1 /CUMM (1.4-6.5); ABSOLUTE LYMPH COUNT 2.8 /CUMM (1.2-3.4); ABSOLUTE MONOCYTE COUNT 0.6 /CUMM (0.10-0.60); BASOPHIL % 0.5 % (0.0-2.0); EOSINOPHIL % 2.6 % (0-5); GRANULOCYTE % 52.9 % (42.2-75.2); HEMATOCRIT 46.6 % (42-52); MEAN CORPUSCULAR HGB 29.9 PG (27.0-31.0); MEAN CORPUSCULAR HGB CONC 33.8 G/DL (33.0-37.0); MEAN CORPUSCULAR VOLUME 88.4 FL (80.0-94.0); MEAN PLATELET VOLUME 7.8 FL (7.4-10.4); PLATELET COUNT 247 /CUMM (130-400); RBC DISTRIBUTION WIDTH 13.6 % (11.5-14.5); RED BLOOD CELL CT 5.27 /CUMM (4.70-6.10); WHITE BLOOD CELL COUNT 7.8 /CUMM (4.8-10.8)
--- NOTE | 2018-02-16 19:32 | ED PSYCH CRISIS CONSULTATION ---
Crisis Consult Basic Assessment Date of Consult: 02/16/18 Responsible Person/Accompanied By: self Insurance Authorization: Insurance #1: Insurance name: SEBASTIAN GUPTA Phone number: Policy number: [id number] Group number: Authorization number: ED Provider: Patient's ED Provider: Sallie Hernandez Primary Care Physician: Patient's PCP: Patient Has No Primary Care Dr PCP's Phone Number: Current Psychiatrist: n/a Chief Complaint: Psychiatric Related Complaint Patient's Quote: "I cannot take it anymore." Present Illness: The pt is a 42yo male dropped off by his aunt for SI and psychosis. The pt presents alert and oriented with goal directed speech. The pt stated he attempted to end his life last night by overdosing with crack. The pt reports he had bypass surgery February 2017 and did not believe his heart would tolerate crack use. The pt stated he sold some of his belongings and smoked $300 worth of crack. The pt insists he was not abusing crack stating he only used it to end his life. The pt stated I cant take it anymore, I have to find a better way. The pt stated he is hearing 3 loud voices nearly constantly and he cannot tolerate them anymore. The pt reports the voices are telling him he is worthless and prevent him from sleeping. The pt reports he has a long hx of difficulty sleeping which worsened over the past 3 days. The pt reports poor appetite and poor concentration. The pt stated he has stressors related to housing and trying to obtain soc sec disability. The pt stated he has been staying with his aunt but is not supposed to live with her. The pt is requesting hospitalization for SI and auditory hallucinations. CSSRS completed and placed in the pts chart. The pts toxicology screen is positive for cocaine and benzodiazepines. The pt reports the benzodiazepines were prescribed to him by . The pt was discharged from [facility] on 01/31/18 after being hospitalized for SI and psychosis. The pt reports he did not follow through with outpatient treatment after discharge and instead attempted to overdose on crack. The pt stated he went to and was briefly admitted to their psychiatric unit before being transferred to a medical floor for 5 days. The pt could not provide specific details of diagnosis or treatment but stated he was being treated for chest pain. The pt reports that since discharge from [facility] he has been taking his medication every 3-4 days. The pt stated he cannot name the medication he is prescribed. The pt reports he was discharged from [facility] treatment program on 01/23/18 after 50 days. The pt stated that prior to [facility] he was hospitalized at [facility] on 2 occasions for psychotic symptoms. Pts current presentation and hx discussed by phone with psychiatrist Dr. Medrano, plan is for hospitalization on [facility]. The pt stated he is in agreement with this plan. Patient's Address: [address] [place] [address] Other Phone Number: Who Do You Live With? Other (see notes) (aunt) Family/Informants Interviewed: no family/collateral ID'd Allergies - Coded Allergies: No Known Allergies (01/26/18) Current Medications - Scheduled Medications Aspirin (Ecotrin*) 81 MG TABLET. 81 MG PO DAILY HEART HEALTH (Reported) Entered as Reported by Cris Elliott on 01/26/182143 Atomoxetine HCl (Strattera) 10 MG CAPSULE 20 MG PO DAILY MENTAL HEALTH ( Reported) Entered as Reported by Cris Elliott on 01/26/182152 Carvedilol (Coreg) 12.5 MG TABLET 12.5 MG PO BID HEART HEALTH (Reported) Entered as Reported by Cris Elliott on 01/26/182148 Clopidogrel Bisulfate (Plavix) 75 MG TABLET 75 MG PO DAILY BLOOD THINNER ( Reported) Entered as Reported by Cris Elliott on 01/26/182151 Furosemide 20 MG TABLET 1 TAB PO BID HEART HEALTH (Reported) Entered as Reported by Cris Elliott on 01/26/182136 Gabapentin 800 MG TABLET 800 MG PO BID MENTAL HEALTH (Reported) Entered as Reported by Cris Elliott on 01/26/182150 Gabapentin (Neurontin) 800 MG TABLET 1,200 MG PO AT BEDTIME MENTAL HEALTH ( Reported) Entered as Reported by Cris Elliott on 01/26/182150 Lisinopril 20 MG TABLET 1 TAB PO DAILY HIGH BLOOD PRESSURE (Reported) Entered as Reported by Cris Elliott on 01/26/182138 Lurasidone HCl (Latuda) 120 MG TABLET 120 MG PO DAILY MENTAL HEALTH (Reported ) Entered as Reported by Cris Elliott on 01/26/182147 Pantoprazole Sodium (Protonix) 40 MG TABLET.DR 40 MG PO DAILY ACID REFLUX ( Reported) Entered as Reported by Cris Elliott on 01/26/182154 Perphenazine 8 MG TABLET 8 MG PO BID MENTAL HEALTH (Reported) Entered as Reported by Cris Elliott on 01/26/182146 Pravastatin Sodium (Pravachol) 80 MG TABLET 80 MG PO AT BEDTIME HIGH CHOLESTROL (Reported) Entered as Reported by Cris Elliott on 01/26/182139 Spironolactone (Aldactone) 25 MG TABLET 1 TAB PO DAILY HEART HEALTH (Reported ) Entered as Reported by Cris Elliott on 01/26/182134 Vilazodone (Viibryd) 40 MG TABLET 40 MG PO DAILY MENTAL HEALTH (Reported) Entered as Reported by Cris Elliott on 01/26/182144 Scheduled PRN Medications Nitroglycerin 0.4 MG TAB.SUBL 0.4 MG SL PRN CHEST PAIN (Reported) Entered as Reported by Cris Elliott on 01/26/182135 Miscellaneous Medications Albuterol Sulfate (Proair Hfa) 90 MCG HFA.AER.AD RESPIRATORY (Reported) Entered as Reported by Cris Elliott on 01/26/182143 Laboratory Results: Laboratory Tests 02/16/181930: Urine Opiates Screen < 100, Methadone Screen < 40, Barbiturate Screen 68, Ur Phencyclidine Scrn < 6.00, Amphetamines Screen < 100, U Benzodiazepines Scrn 661 H, Urine Cocaine Screen > 1000 H, Urine Cannabis Screen < 5.00, Urine Color YEL, Urine Clarity CLEAR, Urine pH 6.0, Ur Specific [place] >= 1.030, Urine Protein NEG, Urine Ketones NEG, Urine Nitrite NEG, Urine Bilirubin NEG, Urine Urobilinogen 0.2, Ur Leukocyte Esterase NEG, Ur Microscopic EXAM NOT REQUIRED, Urine Hemoglobin NEG, Urine Glucose NEG 02/16/18 1751: Anion Gap 13, Estimated GFR > 60, BUN/Creatinine Ratio 22.9, Glucose 169 H, Calcium 9.5, Total Bilirubin 0.5, AST 24, ALT 30, Alkaline Phosphatase 53, Troponin I 0.05, Total Protein 6.6, Albumin 4.4, Globulin 2.2, Albumin/Globulin Ratio 2.0, CBC w Diff NO MAN DIFF REQ, RBC 5.27, MCV 88.4, MCH 29.9, MCHC 33.8, RDW 13.6, MPV 7.8, Gran % 52.9, Lymphocytes % 36.3, Monocytes % 7.7, Eosinophils % 2.6, Basophils % 0.5, Absolute Granulocytes 4.1, Absolute Lymphocytes 2.8, Absolute Monocytes 0.6, Absolute Eosinophils 0.2, Absolute Basophils 0, Serum Alcohol < 10.0 Past History Past Medical History Neurological: NONE EENT: NONE Cardiovascular: CAD, CHF, hypertension, hyperlipidemia Respiratory: NONE, asthma Gastrointestinal: NONE Hepatic: NONE Renal: NONE Musculoskeletal: degen joint disease Psychiatric: anxiety, bipolar disease, depression, psychosis, schizophrenia, SCHIZOAFFECTIVE ADHD Endocrine: hypoglycemia Blood Disorders: NONE Cancer(s): NONE 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: 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 Past Surgical History Surgical History: non-contributory Psychosocial History Strengths/Capabilities: Pt states he is motivated for treatment Physical Limitations (Interventions): None reported Psychiatric Treatment History Psych Treatment Psychiatric Treatment Yes Inpatient Treatment Yes Outpatient Treatment Yes Location of Treatment [facility] Reason for Treatment SI, psychosis Dates of Treatment 2017, unknown previous dates for treatment Response to Treatment poor Diagnosis by History: Schizophrenia,Bipolar Type ADHD PTSD Substance Use/Abuse History Drug Use/Abuse Substances Used/Abused Yes Substance Used/Abused Crack Cocaine First Use age 17 Last Used 02/15/18 How much used/taken $300 How often past daily use For how long long hx Route of use inhale Substance Abuse Treatment Substance Abuse Treatment Past Substance Abuse [place] Yes Inpatient Treatment Yes Outpatient Treatment No Location of Treatment [place] Reason for Treatment Crack Use Dates of Treatment November 2017 Response to Treatment poor Current Mental Status Mental Status Orientation: Person, Place, Situation Affect: Anxious, Depressed, Hopeless, Sad Speech: WNL Neuro-vegetative: Concentration Poor, Helpless, Sleep Disturbance Appearance Appearance- Dress/Hygiene: appropriate Behaviors Thought Process: WNL Thought Content: Auditory Hallucinations Memory: WNL Insight: Poor SI/HI Risk Assessment Past Suicidal Ideation/Attempts Yes Current Suicidal Ideation/Att Yes Past Homicidal Ideation/Att: No Current Homicidal Ideation/Attempts No Degree of Intent: Made Preparations, Plan, Self Destructive/No , States Intent Danger To: Self Risk Factors: access to lethal means, chronic/serious med cond., high anxiety/ distress, history of suicide atmpts, SA/MH hospitalized, substance abuse, poor impulse control, lack of outcome concern, male, limited support Lethality Ratin PTSD Checklist PTSD Done? patient declined ED Management Sitter: Yes Restraints: No DSM5/PS Stressors/Medical Prob Diagnosis' (DSM 5, Stressors, Medical): F25.0 Schizophrenia, Bipolar Type F14.20 Cocaine Use, Severe Current GAF: 29 Departure Disposition Psych Medical Clearance Date: 02/16/18 Medically Cleared at: 181 Time Started: 1809 Time Ended: 1839 Psychiatrist Consulted: Dr. Medrano Date Disposition Established: 02/16/18 Time Disposition Established: 2031 Plan for Disposition - Modality: Inpatient Psychiatry Facility: [facility] Rationale for Disposition: Pt is in need of hospitalization for safety. Type of IP Admission: Voluntary Referrals Patient Has No Primary Care Dr (PCP/Family)
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
[2018-02-16] MEDS ORDERED: AMBIEN10 M1 (23:18)
[2018-02-17 00:19] VITALS: BP 129/76
[2018-02-17 07:09] VITALS: BP 118/71
[2018-02-17 07:52] VITALS: BP 118/71
--- NOTE | 2018-02-17 09:27 | Cons- Medical ---
General Information and HPI Consulting Request Date of Consult: 02/17/18 Requested By: Shaan Preciado MD Reason for Consult: Medical H&P Source of Information: patient, old records History of Present Illness: 42-year-old male past medical history of coronary artery disease, multiple PCI is ultimately requiring a bypass in February 2017 and postoperative course complicated by sternal wound infection and wound VAC. He is an active smoker, he is homeless and he is here for psychotic symptoms. He denies shortness of breath, denies chest pain denies any complaints. Says he takes his medicines whenever he remembers. Allergies/Medications Allergies: Coded Allergies: No Known Allergies (01/26/18) Home Med List: Albuterol Sulfate (Proair Hfa) 90 MCG HFA.AER.AD RESPIRATORY (Reported) Aspirin (Ecotrin*) 81 MG TABLET.DR 81 MG PO DAILY HEART HEALTH (Reported) Atomoxetine HCl (Strattera) 10 MG CAPSULE 20 MG PO DAILY MENTAL HEALTH ( Reported) Carvedilol (Coreg) 12.5 MG TABLET 12.5 MG PO BID HEART HEALTH (Reported) Clopidogrel Bisulfate (Plavix) 75 MG TABLET 75 MG PO DAILY BLOOD THINNER ( Reported) Furosemide 20 MG TABLET 1 TAB PO BID HEART HEALTH (Reported) Gabapentin 800 MG TABLET 800 MG PO BID MENTAL HEALTH (Reported) Gabapentin (Neurontin) 800 MG TABLET 1,200 MG PO AT BEDTIME MENTAL HEALTH ( Reported) Lisinopril 20 MG TABLET 1 TAB PO DAILY HIGH BLOOD PRESSURE (Reported) Lurasidone HCl (Latuda) 120 MG TABLET 120 MG PO DAILY MENTAL HEALTH (Reported ) Nitroglycerin 0.4 MG TAB.SUBL 0.4 MG SL PRN CHEST PAIN (Reported) Pantoprazole Sodium (Protonix) 40 MG TABLET.DR 40 MG PO DAILY ACID REFLUX ( Reported) Perphenazine 8 MG TABLET 8 MG PO BID MENTAL HEALTH (Reported) Pravastatin Sodium (Pravachol) 80 MG TABLET 80 MG PO AT BEDTIME HIGH CHOLESTROL (Reported) Spironolactone (Aldactone) 25 MG TABLET 1 TAB PO DAILY HEART HEALTH (Reported ) Vilazodone (Viibryd) 40 MG TABLET 40 MG PO DAILY MENTAL HEALTH (Reported) Zolpidem Tartrate (Ambien) (Unknown Strength) TABLET (Unknown Dose) SLEEP HELP (Reported) Current Medications: Current Medications Sig/Kenny Start time Last Medication Dose Route Stop Time Status Admin Albuterol Sulfate 2 PUF Q4P PRN 02/17 0030 AC INH Carvedilol 12.5 MG BID 02/17 900 AC 02/17 PO 0709 Gabapentin 400 MG AT BEDTIME 02/17 2100 AC PO Nicotine 21 MG DAILY 02/17 09 AC 02/17 TOP 0705 Nitroglycerin 0.4 MG Q 5 MINUTES X 3 DO.. 02/17 0045 AC SL Omeprazole 40 MG DAILY AC 02/17 07 AC 02/17 PO 0704 Perphenazine 8 MG BID 02/17 09 AC 02/17 PO 0705 Pravastatin Sodium 80 MG 1700 02/17 1700 AC PO Zolmitriptan 0 .STK-MED ONE 02/17 0152 DC PO Zolpidem Tartrate 5 MG ONCE ONE 02/17 0045 DC PO 02/17 004 Review of Systems Review of Systems Constitutional: Denies: no symptoms, chills, diaphoresis, fever. Cardiovascular: Denies: no symptoms, chest pain, edema, orthopena. Respiratory: Denies: no symptoms, cough, hemoptysis. GI: Denies: no symptoms, abdominal pain, bloating, constipation. Genitourinary: Denies: no symptoms, discharge, dysuria, frequency. All Other Systems: Reviewed and Negative Past History Travel History Traveled to [place] past 21 day No Medical History Neurological: NONE EENT: NONE Cardiovascular: CAD, CHF, hypertension, hyperlipidemia Respiratory: NONE, asthma Gastrointestinal: NONE Hepatic: NONE Renal: NONE Musculoskeletal: degen joint disease Psychiatric: anxiety, bipolar disease, depression, psychosis, schizophrenia, SCHIZOAFFECTIVE ADHD Endocrine: hypoglycemia Blood Disorders: NONE Cancer(s): NONE LIVING SUPERVISOR/Reproductive: NONE Surgical History Surgical History: non-contributory Psychosocial History Where Do You Live? Home Primary Language: Bengali ETOH Use: denies use Illicit Drug Use: denies illicit drug use Living Will? unknown Other Social History: Patient is unemployed and homeless. He says his supplemental nurse is Dr. Back at [facility]. He says his mom had leukemia and his dad from heart attack and he is as active tobacco smoker. Employment History Employment: applying for disability Exam & Diagnostic Data Last 24 Hrs of Vital Signs/I&O Vital Signs Date Time Temp Pulse Resp B/P B/P Pulse O2 O2 Flow FiO2 Mean Ox Delivery Rate 02/17 0752 97.0 67 118/71 02/17 0709 67 18 118/71 02/17 0709 67 118/71 02/17 0019 97.8 98 129/76 02/16 2100 97.5 49 18 112/73 99 02/16 2045 Room Air 02/16 1743 96.4 106 18 133/86 97 Room Air Intake & Output 02/17 1600 02/17 0800 02/17 0000 Intake Total Output Total Balance Patient 135.738 kg Weight Physical Exam General Appearance: no apparent distress, alert, awake Head: atraumatic, normal appearance Eyes: Bilateral: normal appearance, PERRL, EOMI. Ears, Nose, Throat: normal pharynx, normal ENT inspection Neck: thick neck Respiratory: normal breath sounds, chest non-tender, no respiratory distress, quiet respiration Cardiovascular: regular rate/rhythm Gastrointestinal: normal bowel sounds, soft, non-tender, no organomegaly Back: normal inspection, normal range of motion Extremities: normal inspection, normal capillary refill, normal range of motion, no edema Neurologic/Psych: no motor/sensory deficits, awake, alert, oriented x 3 Other Physical Findings: Patient is obese and has a very thick neck. He is a little disheveled and unkempt. He is awake alert oriented, cranial nerves III through XII are intact, gross motor and sensory intact. Reflexes are 2+ and symmetric. I did not test his gait. Last 24 Hrs of Labs/John: Laboratory Tests 02/16/182138: Troponin I 0.05 02/16/18 193: Urine Opiates Screen < 100, Methadone Screen < 40, Barbiturate Screen 68, Ur Phencyclidine Scrn < 6.00, Amphetamines Screen < 100, U Benzodiazepines Scrn 661 H, Urine Cocaine Screen > 1000 H, Urine Cannabis Screen < 5.00, Urine Color YEL, Urine Clarity CLEAR, Urine pH 6.0, Ur Specific Lindsay >= 1.030, Urine Protein NEG, Urine Ketones NEG, Urine Nitrite NEG, Urine Bilirubin NEG, Urine Urobilinogen 0.2, Ur Leukocyte Esterase NEG, Ur Microscopic EXAM NOT REQUIRED, Urine Hemoglobin NEG, Urine Glucose NEG 02/16/18 1751: Anion Gap 13, Estimated GFR > 60, BUN/Creatinine Ratio 22.9, Glucose 169 H, Calcium 9.5, Total Bilirubin 0.5, AST 24, ALT 30, Alkaline Phosphatase 53, Troponin I 0.05, Total Protein 6.6, Albumin 4.4, Globulin 2.2, Albumin/Globulin Ratio 2.0, CBC w Diff NO MAN DIFF REQ, RBC 5.27, MCV 88.4, MCH 29.9, MCHC 33.8, RDW 13.6, MPV 7.8, Gran % 52.9, Lymphocytes % 36.3, Monocytes % 7.7, Eosinophils % 2.6, Basophils % 0.5, Absolute Granulocytes 4.1, Absolute Lymphocytes 2.8, Absolute Monocytes 0.6, Absolute Eosinophils 0.2, Absolute Basophils 0, Serum Alcohol < 10.0 Assessment/Plan Assessment/Plan 42-year-old male past medical history of coronary artery disease with bypass, history of CHF unclear what type, active tobacco use who is here with schizophrenic symptoms and homelessness. We will continue his beta-magalys, aspirin, statin, SYLVIE inhibitor and Aldactone with his Lasix. He needs close outpatient follow-up when he leaves. I have counseled him about tobacco cessation and his U tox is positive for cocaine although he denies use. He will need outpatient follow-up with cardiology on discharge. Problem List: 1. HTN (hypertension) 2. HLD (hyperlipidemia) 3. CAD (coronary artery disease) 4. Schizophrenia Consult Acknowledgment - Thank you for your consult request.
--- NOTE | 2018-02-17 15:58 | CPS PROVIDER INIT ASMT PSYCH ---
Psychiatric Admission Top Lift Compressor's Note Reviewed: Yes Patient Seen and Examined: Yes Identifying Information: Marco is a 42 year old M with hx of schizophrenia and cocian abuse. He has medical hx of CAD, CHF, HTN and Hyperlipidemia. He has multiple hospitalization Chief Complaint: Suicidal attempt Reaction to Hospitalization: Voluntary History of Present Illness Onset of Illness: 2 weeks ago. He was discharged from [facility] inpatient on 01/31 Circumstances Leading to Admission: losing hope homelessness Chronic medical issues Problem(s) Justifying Need for Admission: Today, pt was not feeling "well". He did not feel like talking. He said that he is depressed and "want to end this". He still have intentions to kill himself. He attempted by overdose on cocaine knowing it effect on his heart. His intention was to kill himself. Pt reported no sleeping well. He has difficulty falling asleep. He does not feel like eating. HE does not want to see people and does not enjoy being around anyone. At the interview time, pt denied any hallucination or paranoia. HE deos not think any medication helps. HE does not think Latuda helps with his mood. He did not remember what medication he tried before. Past Psychiatric History Past Diagnosis(es)- if any: Schizophrenia Cociane abuse Past Precipitating Factors- if any: medical issues - Include inpatient and outpatient treatment Treatment History: PER record, he tried Zyprexa, Risperidone, Abilify. History of Suicide Attempts or Gestures mulitple Substance Abuse History: daily use od cociane Allergies: Coded Allergies: No Known Allergies (01/26/18) Home Med List: Psychiatric medication: Latuda, Stratera. 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 Pt did not say Social History Living Situation: homeless Significant Relationships (family/friends): pt did not indentify any relationship Education: na Vocation/Occupation: Unemployed Legal: pt did not say Healthly Behaviors Screening Tobacco Screening Tobacco Use from ED Docu: Current Daily Use Daily Tobacco Use Amount/Type: => 5 Cigarettes daily - If tobacco counseling indicated - the following topics are required. - #1 Recognizing dangerous situations. - #2 Coping Skills. - #3 Basic information about quitting. Status of Tobacco Cessation Counseling: #1, #2 AND #3 Completed Cessation Med Status Nicotine Patch Ordered Alcohol Screening - ETOH screen POS if BAL >=80 or Audit-C>= M4/F3 Audit-C Score from Diag Assess: 0 Blood Alcohol Level: Laboratory Tests 02/16 1751 Toxicology Serum Alcohol (<10 MG/DL) < 10.0 Alcohol Use Screening Results: Neg per Audit C &/or BAL - If ETOH counseling indicated - the following topics are required. - #1 Express concern about the patient's - drinking at unhealthy levels, include informing - of national norms for moderate drinking: - men <= 14 drinks/week, max 4 drinks/occasion - women <= 7 drinks/week, max 3 drinks/occasion - #2 Providing feedback, including linking alcohol to - negative physical effects (liver injury, hypertension) - negative emotional effects (relationship problems and - depression) - negative occupational consequences (reduced work - performance) - #3 Advising the patient to abstain from alcohol or - to drink below national norms for moderate drinking - (as listed above). Status of ETOH Use Counseling: N/A B/C NO ETOH Use Metabolic Screening - Screen if on a Neuroleptic Medication - Metabolic screening should include: - Blood Pressure, BMI, Glucose or Hgb A1c, & a - Lipid profile from within the past 365 days. Metabolic Screening Laboratory Tests 02/16 02/16 2139 1931 Chemistry Troponin I (<0.11 ng/ml) 0.05 TSH &T3 &Free T4 Intrp (0.27 - 4.20 uIU/mL) 0.489 Toxicology Urine Opiates Screen (>2000 NG/ML) < 100 Methadone Screen (>300 NG/ML) < 40 Barbiturate Screen (>200 NG/ML) 68 Ur Phencyclidine Scrn (>25 NG/ML) < 6.00 Amphetamines Screen (>1000 NG/ML) < 100 U Benzodiazepines Scrn (>200 NG/ML) 661 H Urine Cocaine Screen (>300 NG/ML) > 1000 H Urine Cannabis Screen (>50 NG/ML) < 5.00 Urines Urine Color (YEL,AMB,STR) YEL Urine Clarity (CLEAR) CLEAR Urine pH (5.0 - 8.0) 6.0 Ur Specific Morrow (1.001 - 1.035) >= 1.030 Urine Protein (NEG,<30 MG/DL) NEG Urine Ketones (NEG) NEG Urine Nitrite (NEG) NEG Urine Bilirubin (NEG) NEG Urine Urobilinogen (0.1 - 1.0 EU/dl) 0.2 Ur Leukocyte Esterase (NEG) NEG Ur Microscopic EXAM NOT REQUIRED Urine Hemoglobin (NEG) NEG Urine Glucose (N MG/DL) NEG 02/16 1751 Chemistry Sodium (137 - 145 mmol/L) 138 Potassium (3.5 - 5.1 mmol/L) 3.8 Chloride (98 - 107 mmol/L) 104 Carbon Dioxide (22 - 30 mmol/L) 21 L Anion Gap (5 - 16) 13 BUN (9 - 20 mg/dL) 16 Creatinine (0.7 - 1.2 mg/dL) 0.7 Estimated GFR (>60 ml/min) > 60 BUN/Creatinine Ratio (7 - 25 %) 22.9 Glucose (65 - 99 mg/dL) 169 H Calcium (8.4 - 10.2 mg/dL) 9.5 Total Bilirubin (0.2 - 1.3 mg/dL) 0.5 AST (17 - 59 U/L) 24 ALT (21 - 72 U/L) 30 Alkaline Phosphatase (< 127 U/L) 53 Troponin I (<0.11 ng/ml) 0.05 Total Protein (6.3 - 8.2 g/dL) 6.6 Albumin (3.5 - 5.0 g/dL) 4.4 Globulin (1.9 - 4.2 gm/dL) 2.2 Albumin/Globulin Ratio (1.1 - 2.2 %) 2.0 Hematology CBC w Diff NO MAN DIFF REQ WBC (4.8 - 10.8 /CUMM) 7.8 RBC (4.70 - 6.10 /CUMM) 5.27 Hgb (14.0 - 18.0 G/DL) 15.7 Hct (42 - 52 %) 46.6 MCV (80.0 - 94.0 FL) 88.4 MCH (27.0 - 31.0 PG) 29.9 MCHC (33.0 - 37.0 G/DL) 33.8 RDW (11.5 - 14.5 %) 13.6 Plt Count (130 - 400 /CUMM) 247 MPV (7.4 - 10.4 FL) 7.8 Gran % (42.2 - 75.2 %) 52.9 Lymphocytes % (20.5 - 51.1 %) 36.3 Monocytes % (1.7 - 9.3 %) 7.7 Eosinophils % (0 - 5 %) 2.6 Basophils % (0.0 - 2.0 %) 0.5 Absolute Granulocytes (1.4 - 6.5 /CUMM) 4.1 Absolute Lymphocytes (1.2 - 3.4 /CUMM) 2.8 Absolute Monocytes (0.10 - 0.60 /CUMM) 0.6 Absolute Eosinophils (0.0 - 0.7 /CUMM) 0.2 Absolute Basophils (0.0 - 0.2 /CUMM) 0 Toxicology Serum Alcohol (<10 MG/DL) < 10.0 Vital Signs Date Time Temp Pulse Resp B/P B/P Pulse O2 O2 Flow FiO2 Mean Ox Delivery Rate 02/17 1248 79 117/69 02/17 0752 97.0 67 118/71 () Not Applicable, patient not on a neuroleptic. OR () Patient on a neuroleptic(s) . Enter below results for Hemoglobin A1C, and lipid panel if obtained during the last 365 days. BMI: 36.400 Blood Pressure: 117/69 Laboratory Results From [facility] (If applicable): Exam and Plan Mental Status Examination Ambulation Status: ambulatory Appearance: in bed, covered up to his head with sheets. Attitude towards examiner: midly uncooperative Psychomotor activity: psychomotor retardation Behavior: no agitation or aggression Quality of speech: slow and soft Affect: "could not assess, pt covered his face and head with bed sheet. Mood: "not well", "depressed" Suicidal Ideation: Pt have suicidal ideation with plan to over dose on cocaine Homicidal Ideation: denied Hallucinations: denied Paranoid/Delusional Material: denied Difficulties with thought organization: poverty and concrete Insight: fair Judgment: poor Orientation: O3 Cognition: pt was uncooperative Memory Function: pt was uncooperative Estimate of intellectual functioning: average to low Assets/Strengths Patient Identified Assets/Strengths: came to ER seeking help Impression/Plan Impression and Plan: This is a 42 Year old with chronic medical issues, homelss and unemployed. He carries dx of schizophrenia. He uses cocaine on daily. Pt is depressed and have suicidal thoughts. He attempted suicide by overdosing on cocaine. - Include all active medical diagnosis that require tx DSM 5 Diagnosis(es): Schizophrenia Cocaine abuse - Initial Tx Plan for Active Psych & Medical Conditions Treatment Plan: - restart Trilafon 4mg BID - restart Neurontin 400mg BID - consider trying SNRI or Wellbutrin - Factors that would help patient function - in a less restrictive setting. Factors: n
[2018-02-17 20:20] VITALS: BP 132/74
[2018-02-18 08:27] VITALS: BP 118/84
--- NOTE | 2018-02-18 12:36 | CP SOUTH PROGRESS NOTE PSYCH ---
Psych (Inpt) Progress Note Progress Note Progress Note: This is a 42 Year old with chronic medical issues, homelss and unemployed. He carries dx of schizophrenia. He uses cocaine on daily. He was admitted for suicidal attempto by overdose on Cocaine. Today, pt is "not well". He noted that voices are louder. He asked for risperidone. Clinician explained that pt is on Trilafon and dose can be increased before adding or switching. He gave verbal permission to try the higher dose. He feels sad and suicidal but does not have a plan. Current Medications Sig/Kenny Start time Last Medication Dose Route Stop Time Status Admin Acetaminophen 650 MG Q6P PRN 02/17 1015 AC PO Al Hydroxide/Mg 30 ML Q4-6 PRN PRN 02/17 1015 AC Hydroxide PO Albuterol Sulfate 2 PUF Q4P PRN 02/17 0030 AC INH Aspirin Buffered 81 MG DAILY 02/17 1120 AC 02/18 PO 1000 Benztropine Mesylate 1 MG Q6P PRN 02/17 1015 AC 02/17 PO 1811 Benztropine Mesylate 1 MG Q6P PRN 02/17 1015 AC IM Carvedilol 12.5 MG BID 02/17 0900 AC 02/18 PO 1000 Clopidogrel Bisulfate 75 MG DAILY 02/17 1120 AC 02/18 PO 1000 Furosemide 20 MG BID 02/17 1121 AC 02/18 PO 1000 Gabapentin 400 MG AT BEDTIME 02/17 2100 AC 02/17 PO 2141 Haloperidol 5 MG Q6P PRN 02/17 1015 AC 02/17 PO 1811 Haloperidol 5 MG Q6P PRN 02/17 1015 AC IM Influenza Virus 0.5 ML ONCE ONE 02/18 900 DC Vaccine IM 02/18 0901 Lisinopril 20 MG DAILY 02/17 1022 AC 02/18 PO 1000 Lorazepam 1 MG ONE ONE 02/18 2000 DC 02/17 PO 02/17 Lorazepam 0 .STK-MED ONE 02/17 1958 DC PO Lorazepam 2 MG Q6P PRN 02/17 1015 AC IM Magnesium Hydroxide 30 ML AT BEDTIME PRN 02/17 1015 AC PO Nicotine 21 MG DAILY 02/17 0900 AC 02/18 TOP 1000 Nitroglycerin 0.4 MG Q 5 MINUTES X 3 DO.. 02/17 0045 AC SL Omeprazole 40 MG DAILY AC 02/17 0700 AC 02/18 PO 0633 Perphenazine 8 MG BID 02/17 2100 AC 02/18 PO 1001 Perphenazine 8 MG BID 02/17 0900 DC 02/17 PO 0705 Pravastatin Sodium 80 MG 1700 02/17 1700 AC 02/17 PO 1731 Spironolactone 25 MG DAILY 02/17 1022 AC 02/18 PO 1000 Vital Signs Date Time Temp Pulse Resp B/P B/P Pulse O2 O2 Flow FiO2 Mean Ox Delivery Rate 02/18 1000 72 118/84 02/18 1000 72 118/84 02/18 0827 96.3 72 118/84 02/17 2141 95 132/74 02/17 2020 96.6 95 132/74 02/17 1248 79 117/69 MMSE: Pt was again in bed. He did not cover his face. He is dressed appropriately but moderately groomed. His hair was oily. He is depressed. Affect is Flat. His speech is soft. Thought were concrete. He has suicidal thought and halluicnation auditory. His insight is fair. Assessment: Pt is still have active depressive symptoms and AH. Pt thinks Risperidone helped. To limit the number of medication and as Trilafon can be increased. Will increase dose first. Pt agreed on plan. DSM 5 Diagnosis(es): Schizophrenia Cocaine abuse Treatment Plan: - rIncrease Trilafon 4mg QAM and 6mg QHS - Continue Neurontin 400mg BID - consider trying SNRI or Wellbutrin
[2018-02-18 19:53] VITALS: BP 115/67
[2018-02-19 10:08] VITALS: BP 120/65
--- NOTE | 2018-02-19 10:29 | CP SOUTH PROGRESS NOTE PSYCH ---
Psych (Inpt) Progress Note Progress Note I reviewed Dr. Medrano's notes (covering for the weekend of 02/17 and 2017). The patient's progress, treatment plan, and aftercare plans were discussed in the treatment team meeting this morning. Team members included: LCSWs, RNs, OTR/ L, Activities Therapist, and Psychiatrist. Vital Signs Date Time Temp Pulse Resp B/P B/P 02/19 1008 97.2 76 120/65 02/19 0828 97.2 76 18 115/67 02/19 0828 97.2 76 18 115/67 02/19 0821 97.2 76 Marco is a 42-year-old white male with chronic medical issues, homelssness and unemployment. He carries dx of schizophrenia. He uses cocaine on daily. He was admitted for suicidal attempto by overdose on Cocaine. He is still saying he hears voices (?? veracity). He feels sad and suicidal but does not have a plan. He is depressed. Affect is Flat. His speech is soft. Thoughts were concrete. He has suicidal thought and halluicnation auditory. His insight is fair. Assessment: Pt is still have active depressive symptoms and AH. Pt wants Risperidone and Ativan (this is what they gave me at [facility]) Diagnosis(es): Schizophrenia Cocaine abuse Treatment Plan: Reduce Trilafon to 8 mg in AM and 4 mg at bedtime Start Risperidone 1 mg at bedtime Start Ativan 1 mg Q6 hours PRN Anxiety Ativan 2 mg at bedtime Aspirin Buffered 81 MG DAILY 02/17 1120 AC 02/18 PO 1000 Benztropine Mesylate 1 MG Q6P PRN 02/17 1015 AC 02/17 PO 1811 Benztropine Mesylate 1 MG Q6P PRN 02/17 1015 AC IM Carvedilol 12.5 MG BID 02/17 0900 AC 02/18 PO 1000 Clopidogrel Bisulfate 75 MG DAILY 02/17 1120 AC 02/18 PO 1000 Furosemide 20 MG BID 02/17 1121 AC 02/18 PO 1000 Gabapentin 400 MG AT BEDTIME 02/17 2100 AC 02/17 PO 2141 Haloperidol 5 MG Q6P PRN 02/17 1015 AC 02/17 PO 1811 Haloperidol 5 MG Q6P PRN 02/17 1015 AC IM Influenza Virus 0.5 ML ONCE ONE 02/18 09 DC Vaccine IM 02/18 0901 Lisinopril 20 MG DAILY 02/17 1022 AC 02/18 PO 1000 Lorazepam 1 MG ONE ONE 02/18 2000 DC 02/17 PO 02/17 Lorazepam 0 .STK-MED ONE 02/17 1958 DC PO Lorazepam 2 MG Q6P PRN 02/17 1015 AC IM Magnesium Hydroxide 30 ML AT BEDTIME PRN 02/17 1015 AC PO Nicotine 21 MG DAILY 02/17 09 AC 02/18 TOP 1000 Nitroglycerin 0.4 MG Q 5 MINUTES X 3 DO.. 02/17 0045 AC SL Omeprazole 40 MG DAILY AC 02/17 0700 AC 02/18 PO 0633 Perphenazine 8 MG BID 02/17 2100 AC 02/18 PO 1001 Perphenazine 8 MG BID 02/17 0900 DC 02/17 PO 0705 Pravastatin Sodium 80 MG 1700 02/17 1700 AC 02/17 PO 1731 Spironolactone 25 MG DAILY 02/17 1022 AC 02/18 PO 1000 Vital Signs Date Time Temp Pulse Resp B/P B/P Pulse O2 O2 Flow FiO2 Mean Ox Delivery Rate 02/18 1000 72 118/84 02/18 1000 72 118/84 02/18 0827 96.3 72 118/84 02/17 2141 95 132/74 02/17 2020 96.6 95 132/74 02/17 1248 79 117/69 MMSE: Pt was again in bed. He did not cover his face. He is dressed appropriately but moderately groomed. His hair was oily. He is depressed. Affect is Flat. His speech is soft. Thought were concrete. He has suicidal thought and halluicnation auditory. His insight is fair. Assessment: Pt is still have active depressive symptoms and AH. Pt thinks Risperidone helped. To limit the number of medication and as Trilafon can be increased. Will increase dose first. Pt agreed on plan. DSM 5 Diagnosis(es): Schizophrenia Cocaine abuse Treatment Plan: - rIncrease Trilafon 4mg QAM and 6mg QHS - Continue Neurontin 400mg BID - consider trying SNRI or Wellbutrin
--- NOTE | 2018-02-19 16:18 | SOCIAL WORKER PROG NOTE PSYCH ---
Social Work Progress Note Progress Note Marco was in bed alot today. Got up to meet with me when prompted late this afternoon. Reports he is tired and he is hearing "horrible" negative voices. They tell him to end his life and replay all the negative things he has done. He feels safe in the hospital and stated he will not act on anything here. He stated that since his discharge a couple weeks ago from here, he has attempted to OD 2x's on Cocaine to end his life. He stated he has used about 1500.00 by selling some of his things. He had been staying with his Aunt, but she was in trouble with the landlord for him being there. He said he has been in contact with [facility] in [place] about the [facility] waiting list and there has still been no opening. He reported after his OD on cocaine he ended up in [facility] for 4-5 days. He had a Social Security hearing 02/14 and is waiting to hear back on the outcome. He was in agreement for a referrals to [facility], and rehab. Refused a release for his Aunt at this time.
--- NOTE | 2018-02-19 17:48 | SOCIAL WORKER PROG NOTE PSYCH ---
Social Work Progress Note Progress Note FEI DAVE [id number] 1975 FEI DAVE [id number] Pended Authorization # Client Authorization # Type of Request [id number] CONCURRENT Date of Admission/ Start of Services Requested From Submission Date 02/16/2018 02/19/2018 02/19/2018
[2018-02-19 20:05] VITALS: BP 159/85
--- NOTE | 2018-02-20 07:52 | CP SOUTH PROGRESS NOTE PSYCH ---
Psych (Inpt) Progress Note Progress Note The patient's progress, treatment plan, and aftercare plans were discussed in the treatment team meeting this morning. Team members included: LCSWs, RNs, OTR/ L, and Psychiatrist. Vital Signs Date Time Temp Pulse Resp B/P B/P Pulse O2 02/20 1008 96.1 81 18 126/83 02/20 1007 96.1 81 18 126/83 02/20 0804 96.1 81 He says he's still hearing voices telling him to kill self (?? veracity). He says he feels depressed and his affect is flat. No delusions observed, he is coherent (i.e. no thought disorder) Assessment: Marco Kilpatrick is a 42-year-old white male who was admitted for claiming that he hears voices telling him to kill self Diagnoses: ?? Schizophrenia ?? Cocaine indeuced psychotic disorder Cocaine use disorder, severe malingering Treatment Plan: Reduce Trilafon to 4 mg BID Increase Risperidone to 2 mg at bedtime Continue Ativan 1 mg Q6 hours PRN Anxiety & 2 mg at bedtime
[2018-02-20 08:04] VITALS: BP 126/83
--- NOTE | 2018-02-20 11:08 | SOCIAL WORKER PROG NOTE PSYCH ---
Social Work Progress Note Progress Note Pt has a GFP appointment with Dr. Navarro at [address] [facility] on March 05 at 1:15pm [phone]
--- NOTE | 2018-02-20 11:21 | SOCIAL WORKER PROG NOTE PSYCH ---
Social Work Progress Note Progress Note [facility] referral made Raulito was assigned to him.
--- NOTE | 2018-02-20 15:19 | SOCIAL WORKER PROG NOTE PSYCH ---
Social Work Progress Note Progress Note Met Marco this afternoon with Dr. Paez. Marco reports he is struggling with panic symptoms and negative voices today. States he is isolating in his room because he can't deal with groups and things on the unit right now. Encouraged him to utilize group as a healthy distraction to his negative voices. Talked about how a benzodiazepine may be helpful short term, but he won't be accepted into rehab on it if that's his goal. He said that was still the goal. Let him know that the [facility] referral was done and that Debra Hernandez (community health worker) would follow up with him about the rehab referrals. Said he talked to his Aunt and she is aware he is here. Asked if we could talk with his Aunt? He said that was fine. Reports she is going to be evicted if he returns there and doesn't want to jeopardize her housing. Raulito (staff from [facility]) met with Marco later in the day.
[2018-02-20 19:34] VITALS: BP 134/86
--- NOTE | 2018-02-21 07:55 | CP SOUTH PROGRESS NOTE PSYCH ---
Psych (Inpt) Progress Note Progress Note The patient's progress, treatment plan, and aftercare plans were discussed in the treatment team meeting this morning. Team members included: LCSWs, RNs, OTR/ L, and Psychiatrist. Vital Signs: Date Time Temp Pulse Resp B/P 02/21 0817 97.1 96 18 161/86 02/21 0816 97.1 96 18 161/86 02/21 0809 97.1 96 161/86 02/20 2051 84 134/86 02/20 1934 97.2 84 134/ He says he's still hearing voices (?? veracity). He says he's still have some thoughts of suicide. He says he feels depressed and his affect is flat. No delusions observed, he is coherent (i.e. no thought disorder) He denied violent thoughts or thoughts of homicide Assessment: Marco Kilpatrick is a 42-year-old white male who was admitted for claiming that he hears voices telling him to kill self. He is basically unchanged except for a relative decline in intensity of symptoms Diagnoses: ?? Schizophrenia ?? Cocaine indeuced psychotic disorder Cocaine use disorder, severe malingering Treatment Plan Update: 1) Reduce Trilafon to 2 mg BID 2) Increase Risperidone to 1 mg in AM and 2 mg at bedtime 3) D/C PRN and regular Ativan 4) Add Gabapentin 1200 mg TID (09:00, 13:00, and 17:00) 5) Replace bedtime Ativan with Klonopin 2 mg at bedtime
[2018-02-21 08:09] VITALS: BP 161/86
--- NOTE | 2018-02-21 09:11 | SOCIAL WORKER PROG NOTE PSYCH ---
Social Work Progress Note Progress Note Psychiatric Community Health Worker Note Met with the pt to discuss discharge plan. Pt signed the following releases: [facility]/Rolf Munguia CV-[facility] 02.21.18 pt will sign a release for [facility]. Applications and clinical will be faxed on 02.21.18 Debra Hernandez (Tish) Psychiatric W
--- NOTE | 2018-02-21 11:58 | SOCIAL WORKER PROG NOTE PSYCH ---
Social Work Progress Note Progress Note Psychiatric Communtiy Health Worker Note Faxed the following referrals on 02.21.18: [facility] at 11:06am [facility] at 11:12am [facility] at 11:38am [facility] at 11:39am [facility] at 11:58am [facility] at 1:46pm [facility] at 3:30pm [facility] at 3:28pm Per Pinky Marquis LCSW [facility] is not accepting the pt referral due to SI, substance abuse,etc.,
--- NOTE | 2018-02-21 14:11 | SOCIAL WORKER PROG NOTE PSYCH ---
Social Work Progress Note Progress Note Marco was in bed this afternoon. Got up when prompted to meet. He continues to present as hopeless, helpless, and isolative. Affect is depressed/ flat/ constricted. Challenged him a little more to do something to help himself while he is here. Encouraged involvement in groups and in his discharge planning. Encouraged him to reach out to providers to set up phone screenings. He said he would try and do his best. Reports he is continuing to hear voices of a negative nature. When asked if there was a command to kill himself? He said that it wasn't that, but that the voices stated his life was not worth living. Challenged him on to work towards his goals and getting into rehab. Told him he hasn't given up if he was open to going to rehab and treatment. Brought him over to the group board in the kitchen and asked him to pick a group for this afternoon. He said he would go to the activity group at 3pm. Shared with him that I received a call from [facility] and they have denied his referral due to recent suicide attempt and active voices. Let him know that [facility] would consider his referral, but they will need to assess his medical needs.
[2018-02-21 19:52] VITALS: BP 158/96
--- NOTE | 2018-02-22 07:22 | CP SOUTH PROGRESS NOTE PSYCH ---
Psych (Inpt) Progress Note Progress Note The patient's progress, treatment plan, and aftercare plans were discussed in the treatment team meeting this morning. Team members included: LCSWs, RNs, OTR/ L, and Psychiatrist. Vital Signs: Date Time Temp Pulse Resp B/P B/P O2 FiO2 02/22 0805 96.1 58 157/86 02/22 2052 97.8 86 18 158/96 Mental Status Exam: Marco says he's still hearing voices (?? veracity), says he's still have some thoughts of suicide (??veracity). He says he feels depressed and very anxious, his affect is flat. No delusions observed, he is coherent (i.e. no thought disorder). He denied violent thoughts or thoughts of homicide Assessment: Marco Kilpatrick is a 42-year-old white male who was admitted for claiming that he hears voices telling him to kill self. He is basically unchanged, does report seems to be very unreliable. He continues to report both auditory hallucinations as well as thoughts of suicide. Identified Risk Factors: 1) Reporting thoughts of suicide 2) Reporting commend hallucinations. Protective and Risk Mitigating Factors: 1) Does not have a terminal illness 2) Does not suffer from chronic severe pain 3) I believe his claims of thoughts of suicide are malingered for material gain 4) I believe his claims of audio hallucinations are malingered for material gain. Marco was previously on our inpatient unit, he is homeless and reporting these symptoms is his way of trying to circumvent discharge so that he does not have to face placement in a care home Diagnoses: ?? Schizophrenia ?? Cocaine induced psychotic disorder Cocaine use disorder, severe malingering Other specified Personality Disorder Treatment Plan Update: 1) D/C Trilafon 2) Increase Risperidone to 1 mg in AM and 3 mg at bedtime 3) Increase Klonopin to 3 mg at bedtime 4) Continue Gabapentin 1200 mg TID (09:00, 13:00, and 17:00) 5) Change furosemide to 0800 and 1600
[2018-02-22 08:05] VITALS: BP 157/86
--- NOTE | 2018-02-22 10:10 | SOCIAL WORKER PROG NOTE PSYCH ---
Social Work Progress Note Progress Note I [place] ([facility] [employer]) met with Marco this morning. The patient was in bed and had a flat affect. The patient reports that he still feels hopeless, and helpless. He expressed that he was not experiencing physical pain today. He reports hearing voices telling him "He is bad and worthless". When I asked how he marisela with the voices he said "that he deals with them." When questioning what he meant by 'he deals with the voices' he said "I don't know." Patient reports he is suicidal but will be safe on the unit. Marco shared that he did not sleep well and was feeling tired. This fiction writer inquired about what it would look like when the patient was not feeling hopeless or depressed to which he responded "I do not remember". The feelings the patient holds toward his aunt were examined which he expressed he is unsure how he feels about her. He was certain that he felt a family meeting was unnecessary. When questioning this further he claimed that the meeting was not needed due to his aunt's age. This fiction writer explored with the client his crack use which he claimed "he is not a user , he only used because he wanted to ". I reemphasized that attending groups was important and asked if he was planning to attend at least one today to which his reply was that he will try but could not tell me which group he was interested in attending.
--- NOTE | 2018-02-22 16:02 | SOCIAL WORKER PROG NOTE PSYCH ---
Social Work Progress Note Progress Note Psychiatric CHW Note Met with the pt to provide rehab referral updates (and to see if he attended any groups today, which he reported he did). Pt has a phone screening with Archie at [facility] at 10:00am and a phone screening with Ly at [facility] at 11: 30am. Pt was also notified that there is a pending phone screening for tomorrow morning with Rosemary from [facility] that will be conducted by the CHW. [facility] but a message was left so a follow up call will be made on 02.23.18. PPD and EKG is needed as well for these referrals. Debra Hernandez (Tish) Psychiatric CHW
[2018-02-22 19:29] VITALS: BP 107/65
[2018-02-22 21:20] VITALS: BP 122/78
--- NOTE | 2018-02-23 07:39 | CP SOUTH PROGRESS NOTE PSYCH ---
Psych (Inpt) Progress Note Progress Note The patient's progress, treatment plan, and aftercare plans were discussed in the treatment team meeting this morning. Team members included: LCSWs, RNs, OTR/ L, and Psychiatrist. Vital Signs: Date Time Temp Pulse Resp B/P 02/23 0912 149/94 02/23 0911 96.0 86 18 149/94 02/23 0838 96.0 86 149/94 02/22 2120 90 122/78 Mental Status Exam: Marco was alert and oriented to time, place, and person. Although he says he's still hearing voices, I have serious doubts about the reliability/veracity of his report. He called his great aunt from my phone, spoke to her very coherently, and his affect brightened almost immediately after he learned he could go there today ( to stay awaiting his reab bed on March 20, 2018) Although he says he was still having wishes of , he denied thoughts of suicide (after the phone conversation with great aunt), I also question the reliability/veracity of his prior report regarding suicide in previous days (see below). He seems very organized and coherent when he spoks with his great aunt (from my office phone) No delusions observed, he is coherent (i.e. no thought disorder). He denied violent thoughts or thoughts of homicide Assessment: Marco Kilpatrick is a 42-year-old single white male who was admitted for claiming that he hears voices telling him to kill self. He is basically unchanged, does report seems to be very unreliable. He continued to report both auditory hallucinations as well as thoughts of suicide until he learned from his great aunt that he can stay at her home while he awaits rehab bed (on 03/20/2018). Identified Risk Factors: 1) Reporting thoughts of suicide (until yesterday) 2) Reporting command hallucinations. Protective and Risk Mitigating Factors: 1) Denied thoughts of suicide after talking to his great aunt and found away he can stay at her home until his rehab bed becomes available 2) Does not suffer from chronic severe pain 3) Does not have a terminal illness 4) I believe his claims of audio hallucinations are malingered for material gain. Marco was previously on our inpatient unit, he is homeless and reporting these symptoms is his way of trying to circumvent discharge so that he does not have to face placement in a longterm 5) I believe his claims of thoughts of suicide are malingered for material gain Diagnoses: Although he was diagnosed in the past with Schizophrenia, I have doubts about this diagnosis (??) Cocaine induced psychotic disorder Cocaine use disorder, severe malingering Other specified Personality Disorder Treatment Plan Update: May be discharged home (to great aunt), awaiting rehab bed availability
[2018-02-23 08:38] VITALS: BP 149/94
[2018-02-23 09:12] VITALS: BP 149/94
--- NOTE | 2018-02-23 10:27 | SOCIAL WORKER PROG NOTE PSYCH ---
Social Work Progress Note Progress Note Psychiatric CHW Note Pt completed phone screening with Archie at [facility] and was notified that the next available bed is March 20, 2018. Archie was also faxed the remaining pages of the screening form on 02.23.18 at 10:08am and the PPD results were faxed on 02.23.18 at 10:19am per the request of Archie. Pt completed phone screening with Ly at [facility] and was notified that the team will be reviewing his case and will provide update next week. Per request of Ly, faxed PPD and EKG results on 02.23.18 at 12:13pm. Pinky Marquis LCSW also notified me that a call was received from [facility] and pt is on the waitlist (approx. 3 week wait). Pt was notified of this information. Pt is d/c'ing today(02.23.18) and to his aunt's house and will follow up on the referrals from there. [place] ride was scheduled on 02.23.18 at 3:00pm for immediate excelsior picker with no ETA provided since it is an "immediate" request. On 02.23.18 spoke with Alyssa(pt's aunt) to see if she was able/willing to make arrangements for pt to be picked up due to pt still waiting for ride from [employer] but she was unable to make arrangements as she does not have a vehicle and her neighbor who would usually pick him up is not home and has plans for this evening. Tory was instructed to call the nurses station upon arrival to excelsior picker the pt. Debra Hernandez (Tish) Psychiatric CHW
[2018-02-23] MEDS ORDERED: NICOTINE PATCH1 EAC3 TOP (11:17)
[2018-02-23] MEDS ORDERED: GABAPENTIN600 M1 PO (11:17)
[2018-02-23] MEDS ORDERED: TRAZODONE HCL100 M1 PO (11:17)
[2018-02-23] MEDS ORDERED: RISPERIDONE4 M1 PO (11:19)
--- NOTE | 2018-02-23 11:22 | Patient Discharge Instructions ---
Psych Discharge Inst General Discharge Information Reason for Admission: voices telling pt. to kill self Psy Discharge Primary Diag+ Unspecified Psychostic Di Psy Discharge Secondary Diag+ Cocaine Use Disorder Summary Tests/Major Procedures Significant Lab Findings: Lab Cholesterol 254 MG/DL H 01/28/18 0638 Cholesterol/HDL Ratio 6 % H 01/28/18 0638 HDL Cholesterol 42 mg/dL 01/28/18 0638 Hemoglobin A1c 5.7 % 01/28/18 0638 LDL Cholesterol, Calc 139 mg/dL H 01/28/18 0638 Sodium 138 mmol/L 01/26/18 0959 Triglycerides 365 mg/dL H 01/28/18 0638 Studies Pending at DC: none Patient Instructions Contact Information Your Psychiatrist on [facility] was Jeannine GIBBONS,Nasir * If you are experiencing an emergency related to this hospitalization, please call [phone] to contact the treating psychiatrist or the psychiatrist-on- call. * To Request a copy of your medical records, please contact the Medical Records Department at [phone]. * To request results of studies pending at the time of discharge, please call [phone]. * Continue your Medications until directed to stop by your Healthcare provider. General Medication Information Please continue to take your new medications and your continued home medications , unless otherwise indicated on your discharge medication list, or unless directed by your MD or PRIVATE EYE to stop them. Special Instructions Diet Heart Healthy Activity Normal - Tobacco Use Treatment Offered Post DC Medications Offered: Script Given-See Med List Post DC Tobacco Treatment Plan: Refused Tobacco Tx Pgm - EtOH/Drug Use D/O Treatment Offered Post DC Medications Offered: Med Not Indicated for D/O Post DC EtOH/SubAbuse TX Plan: Other SubAbuse/Dual Pgm Metabolic Screening Patient on a neuroleptic(s) . Enter below results for Hemoglobin A1C, and lipid panel if obtained during the last 365 days. BMI: 36.400 Blood Pressure: 149/94 Laboratory Results From [facility] (If applicable): Cholesterol 254 MG/DL H 01/28/18 0638 Cholesterol/HDL Ratio 6 % H 01/28/18 0638 HDL Cholesterol 42 mg/dL 01/28/18 0638 Hemoglobin A1c 5.7 % 01/28/18 0638 LDL Cholesterol, Calc 139 mg/dL H 01/28/18 0638 Sodium 138 mmol/L 01/26/18 0959 Triglycerides 365 mg/dL H 01/28/18 0638 Advance Directives Does the Patient have Medical Advance Directives No/Refused further info Does Pt have Psychiatric Advance Directives? No/Refused further info Does Patient have a Designated Surrogate Decision Maker: No Information About Psychiatric Advance Directives Provided? Refused Discharge Plan Post Hospital Treatment Plan: [facility]
--- NOTE | 2018-02-23 11:43 | DISCHARGE SUMMARY REPORT-PSYCH ---
Visit Information Visit Dates/Diagnosis' Admission Date: 02/16/18 Discharge Date: 02/23/18 Reason for Admission: voices telling pt. to kill self Psy Discharge Primary Diag: Unspecified Psychostic Di Psy Discharge Secondary Diag: Cocaine Use Disorder Hospital Course Significant Lab Findings: Lab Cholesterol 254 MG/DL H 01/28/18 0638 Cholesterol/HDL Ratio 6 % H 01/28/18 0638 HDL Cholesterol 42 mg/dL 01/28/18 0638 Hemoglobin A1c 5.7 % 01/28/18 0638 LDL Cholesterol, Calc 139 mg/dL H 01/28/18 0638 Triglycerides 365 mg/dL H 01/28/18 0638 Course Complications: the patient did not have any complications while on inpatient psych Consultations: patient has several EKGs General Information and HPI MD Statement: I have seen and personally examined JOLIEVEENAFEI and documented this H&P. The patient is a 42 year old M who presented with a patient stated chief complaint of difficulty sleeping and hallucinations History of Present Illness: 42 year-old with extensive psychiatric history presents with hallucinations and insomnia x4 days. Significant premature cardiac disease with systolic heart failure (likely ischemic), multiple PCI's in past, and need for emergent CABG x4 just last year in [place], an episode further complicated by sternal wound infection ultimately requiring sternal wound debridement and wound vac placement. Recently moved up here and is essentially homeless. Recently increased with Coreg dose to 12.5 BID, will need repeat echo in about 8 weeks; if EF remains sub 30% he will have AICD placed. Allergies/Medications Allergies: Coded Allergies: No Known Allergies (01/26/18) Past History Travel History Traveled to [place] past 21 day No Medical History Neurological: NONE EENT: NONE Cardiovascular: CAD, CHF, hypertension, hyperlipidemia Respiratory: NONE, asthma Gastrointestinal: NONE Hepatic: NONE Renal: NONE Musculoskeletal: degen joint disease Psychiatric: anxiety, bipolar disease, depression, psychosis, schizophrenia, SCHIZOAFFECTIVE ADHD Endocrine: hypoglycemia Blood Disorders: NONE Cancer(s): NONE SERVICE CENTER SUPERVISOR/Reproductive: NONE History of MRSA: No History of VRE: No History of CDIFF: No Isolation History: Standard Surgical History Surgical History: non-contributory Past Family/Social History Psychosocial History Where do you live? Other (with aunt in [place]) Primary Language: [place] Smoking Status: Unknown If Ever Smoked ETOH Use: denies use, occasional use Illicit Drug Use: denies illicit drug use, cocaine Living Will? unknown Employment History Employment Disability Review of Systems Review of Systems Constitutional: Reports: see HPI. Denies: no symptoms. EENTM: Denies: no symptoms. Cardiovascular: Reports: chest pain (occasional with anxiety). Denies: no symptoms. Respiratory: Denies: no symptoms. GI: Reports: vomiting. Denies: no symptoms. Exam & Diagnostic Data Last 24 Hrs of Vital Signs/I&O Vital Signs Date Time Temp Pulse Resp B/P B/P Pulse O2 O2 Flow FiO2 Mean Ox Delivery Rate 01/26 2003 97.4 92 118/87 01/26 1853 98.1 85 18 130/87 98 Room Air 01/26 1417 98.2 86 18 127/61 96 Room Air 01/26 0946 98.8 95 18 160/81 95 Room Air Intake & Output 01/26 1600 01/26 0800 01/26 0000 Intake Total Output Total 600 Balance -600 Output, Urine 600 Patient 136.078 kg Weight Weight Reported by Patient Measurement Method stable vital sings Physical Exam General Appearance Alert, Oriented X3, Cooperative Skin No Significant Lesion Skin Temp/Moisture Exam: Warm/Dry Sepsis Skin Exam (color): Normal for Ethnicity HEENT Atraumatic, PERRLA, EOMI Neck Supple, No JVD, No thryomegaly Lymphatic Axillary nl, Cervical nl Cardiovascular Normal S1, Normal S2 Lungs Clear to Auscultation Abdomen Soft, No Tenderness, No Hepatospenomegaly, No Masses Neurological Normal Gait, Normal Speech Extremities No Clubbing, No Cyanosis, No Edema Vascular Normal Pulses, Pulses Symmetrical Assessment/Plan Assessment: 42 year-old with extensive psychiatric history presents with hallucinations and insomnia x4 days. Significant premature cardiac disease with systolic heart failure (likely ischemic), multiple PCI's in past, and need for emergent CABG x4 just last year in [place], an episode further complicated by sternal wound infection ultimately requiring sternal wound debridement and wound vac placement. Recently moved up here and is essentially homeless. Recently increased with Coreg dose to 12.5 BID, will need repeat echo in about 8 weeks; if EF remains sub 30% he will have AICD placed. As Ranked By This Provider Problem List: 1. Schizophrenia 2. Chest pain, unspecified Core Measures/Misc (02/19) Acute Coronary Syndrome ACS Diagnosis: No Congestive Heart Failure Congestive Heart Failure Diagnosis No Cerebrovascular Accident CVA/TIA Diagnosis: No VTE (View Protocol) VTE Risk Factors No risk factors No Mechanical VTE Prophylaxis d/t LowRisk-No Interven Req'd No VTE Pharm Prophylaxis d/t LowRisk-No Interven Req'd Sepsis (View protocol) Sepsis Present: No If YES complete Sepsis Event Note If YES complete Sepsis Event Note Attending Review Statement Attending Statement Attending Statement: examined this patient, reviewed EMR data (avail), discussed with nursing Attending Assessment/Plan: Will continue usual outpatient medications including Coreg 12.5mg BID, aspirin 81mg daily, Plavix 75mg daily, Lasix 20mg daily, spironolactone 12.5mg daily, lisinopril 10mg daily. No evidence of active CAD at this time. Results of evaluation reviewed with nursing on unit. DICTATED BY: Odilon Interiano MD DATE/TIME DICTATED:01/26/182117 SALES AND CATERING COORDINATOR:YOKASTA DATE/TIME TRANSCRIBED:01/26/182117 REPORT NUMBER:[id number] CONFIDENTIAL, DO NOT COPY WITHOUT APPROPRIATE AUTHORIZATION. <Electronically signed by Odilon Interiano MD> 01/26/182127 Allergies: Coded Allergies: No Known Allergies (01/26/18) Hospital Course/TX Response: 02/17/2018: Impression and Plan: This is a 42 Year old with chronic medical issues, homelss and unemployed. He carries dx of schizophrenia. He uses cocaine on daily. Pt is depressed and have suicidal thoughts. He attempted suicide by overdosing on cocaine. - Include all active medical diagnosis that require tx DSM 5 Diagnosis(es): Schizophrenia Cocaine abuse - Initial Tx Plan for Active Psych & Medical Conditions Treatment Plan: - restart Trilafon 4mg BID - restart Neurontin 400mg BID - consider trying SNRI or Wellbutrin 02/18/2018--02/22/2018: During those 5 days the patient's Trilafon was gradually titrated down and the patient was started on Risperdal and the dose was gradually increased. Patient reported that he found Risperdal more helpful when he was at the [facility]. The patient tolerated the cross titration without any issues. The patient however continued to report the same symptoms during those 5 days: Reporting that he was hearing voices telling him to kill self. The patient also continued to complain about anxiety and restlessness and racing thoughts and his gabapentin dose was gradually increased up to the maximum dose of 1200 mg 3 times daily. The patient was also placed on Klonopin at bedtime. During the patient's stay on the inpatient psychiatric unit, I had very strong suspicions that the patient's symptoms where at least partially malingered. The material gain being a motivation to stay in the hospital as long as possible as he was facing unstable housing situation. The patient just like in a previous admission had a quick resolution of symptoms once he learned that his great aunt will take him back into her house. 02/23/2018: Mental Status Exam: Fei was alert and oriented to time, place, and person. Although he says he's still hearing voices, I have serious doubts about the reliability/veracity of his report. He called his great aunt from my phone, spoke to her very coherently, and his affect brightened almost immediately after he learned he could go there today ( to stay awaiting his reab bed on March 20, 2018) Although he says he was still having wishes of , he denied thoughts of suicide (after the phone conversation with great aunt), I also question the reliability/veracity of his prior report regarding suicide in previous days (see below). He seems very organized and coherent when he spoks with his great aunt (from my office phone) No delusions observed, he is coherent (i.e. no thought disorder). He denied violent thoughts or thoughts of homicide Assessment: Fei Kilpatrick is a 42-year-old single white male who was admitted for claiming that he hears voices telling him to kill self. He is basically unchanged, does report seems to be very unreliable. He continued to report both auditory hallucinations as well as thoughts of suicide until he learned from his great aunt that he can stay at her home while he awaits rehab bed (on 03/20/2018). Identified Risk Factors: 1) Reporting thoughts of suicide (until yesterday) 2) Reporting command hallucinations. Protective and Risk Mitigating Factors: 1) Denied thoughts of suicide after talking to his great aunt and found away he can stay at her home until his rehab bed becomes available 2) Does not suffer from chronic severe pain 3) Does not have a terminal illness 4) I believe his claims of audio hallucinations are malingered for material gain. Fei was previously on our inpatient unit, he is homeless and reporting these symptoms is his way of trying to circumvent discharge so that he does not have to face placement in a custodial 5) I believe his claims of thoughts of suicide are malingered for material gain Diagnoses: Although he was diagnosed in the past with Schizophrenia, I have doubts about this diagnosis (??) Cocaine induced psychotic disorder Cocaine use disorder, severe malingering Other specified Personality Disorder Treatment Plan Update: May be discharged home (to great aunt), awaiting rehab bed availability Discharge HBIPS - Tobacco Use Treatment Offered Post DC Medications Offered: Script Given-See Med List Post DC Tobacco Treatment Plan: Refused Tobacco Tx Pgm - EtOH/Drug Use D/O Treatment Offered Post DC Medications Offered: Med Not Indicated for D/O Post DC EtOH/SubAbuse TX Plan: Other SubAbuse/Dual Pgm Metabolic Screening - Screen if on a Neuroleptic Medication - Metabolic screening should include: - Blood Pressure, BMI, Glucose or Hgb A1c, & a - Lipid profile from within the past 365 days. Metabolic Screening Patient on a neuroleptic BMI: 36.400 Blood Pressure: 149/94 Laboratory Results From [facility] EHR (If applicable): Lab Cholesterol 254 MG/DL H 01/28/18 0638 Cholesterol/HDL Ratio 6 % H 01/28/18 0638 HDL Cholesterol 42 mg/dL 01/28/18 0638 Hemoglobin A1c 5.7 % 01/28/18 0638 LDL Cholesterol, Calc 139 mg/dL H 01/28/18 0638 Triglycerides 365 mg/dL H 01/28/18 0638 Discharge Instructions General Discharge Information Multiple Neuroleptics: Not Applicable Discharge Diet Heart Healthy Discharge Activity Normal DC Disposition: Home to great aunt's house Referrals Ordered Referrals Provider Referral For Groups: [REHAB] Patient will need to follow up with the following rehabs: Accepted and on the waitlist at [facility]. Call and check in weekly- [phone] On the wait list at [facility]- call Archie [phone] Call Karen to follow up on referral- [phone] Provider Referral For Groups: [[facility] ] [facility] Referral Follow up with Shantelle Amaya @ [phone] [facility] 02/28/[address] [place] [address] [place] [address] [facility] appt. for Intake 02/28/18 12:30pm [address] [place] [address] Prescriptions Stop taking the following medications: Perphenazine (Perphenazine) 8 MG TABLET ORAL TWICE DAILY Lurasidone HCl (Latuda) 120 MG TABLET ORAL DAILY Gabapentin (Gabapentin) 800 MG TABLET ORAL TWICE DAILY Gabapentin (Neurontin) 800 MG TABLET ORAL AT BEDTIME Atomoxetine HCl (Strattera) 10 MG CAPSULE ORAL DAILY Zolpidem Tartrate (Ambien) (Unknown Strength) TABLET Continue taking these medications: Spironolactone (Aldactone) 25 MG TABLET 1 Tablet ORAL DAILY Comments: Last Taken:02/23/18 Time:0900 Nitroglycerin (Nitroglycerin) 0.4 MG TAB.SUBL 0.4 Milligram SUBLINGUAL as needed for CHEST PAIN Comments: Last Taken:NOT GIVEN IN THE HOSPITAL Time: Furosemide (Furosemide) 20 MG TABLET 1 Tablet ORAL TWICE DAILY Comments: Last Taken:02/23/18 Time:0900 Lisinopril (Lisinopril) 20 MG TABLET 1 Tablet ORAL DAILY Comments: Last Taken:02/23/18 Time:0900 Pravastatin Sodium (Pravachol) 80 MG TABLET 80 Milligram ORAL AT BEDTIME Comments: Last Taken:02/22/18 Time:1800 Aspirin (Ecotrin*) 81 MG TABLET. 81 Milligram ORAL DAILY Comments: Last Taken:02/23/18 Time:0900 Albuterol Sulfate (Proair Hfa) 90 MCG HFA.AER.AD as needed for RESPIRATORY Comments: Last Taken:NOT USED IN THE HOSPITAL Time: Vilazodone (Viibryd) 40 MG TABLET 40 Milligram ORAL DAILY Comments: Last Taken:02/23/18 Time:0900 Carvedilol (Coreg) 12.5 MG TABLET 12.5 Milligram ORAL TWICE DAILY Comments: Last Taken:02/23/18 Time:0900 Clopidogrel Bisulfate (Plavix) 75 MG TABLET 75 Milligram ORAL DAILY Comments: Last Taken:02/23/18 Time:8AM Pantoprazole Sodium (Protonix) 40 MG TABLET. 40 Milligram ORAL DAILY Comments: Last Taken:02/23/18 SUBSTITUTED WITH PRILOSEC IN THE HOSPITAL Time:8AM Start taking the following new medications: Nicotine (Nicotine Patch) 21 MG/24 HOUR PATCH.TD24 21 Milligram On the skin DAILY Qty = 14 No Refills Trazodone HCl (Trazodone HCl) 100 MG TABLET 100 Milligram ORAL AT BEDTIME Qty = 14 No Refills Comments: Last Taken:02/22/18 Time:2100 Gabapentin (Gabapentin) 600 MG TABLET 2 Tablet ORAL THREE TIMES DAILY Qty = 90 No Refills Comments: Last Taken:02/23/18 Time:1300 Risperidone (Risperidone) 4 MG TABLET 1 Tablet ORAL AT BEDTIME Qty = 14 No Refills Comments: Last Taken:3 MG TAKEN 02/23/2000 Time:1 MG TAKEN 1199 Studies Pending at Discharge none Copies To: TIFFANY Trejo
--- NOTE | 2018-02-23 13:20 | SOCIAL WORKER PROG NOTE PSYCH ---
Social Work Progress Note Progress Note I Du Vance (DATA RECOVERY PLANNER Dust Mop Maker) met with Marco this afternoon. He appeared to have more energy today compared to yesterday as evidence by him being out of bed and dressed in appropriate clothing for the season. The patient reported he is in a good mood. He expressed his energy is low and claims " he only slept a few hours last night". He stated that he "feels ready for discharge and can't wait to smoke a cigarette." The patient was eating ice cream and shared that is appetite is always good. The patient reports that he still hears voices but the medications helps him to manage the negative voices that he hears. The patient denies SI and HI. The patient is discharging to his great aunt's house in [place], [place]. He has an intake for dual IOP set up with [facility]. The patient will continue to follow up with the rehabs: [facility], and [facility]. Caroleen will be picking up the patient in the main lobby of the hospital. Fax #: [phone] Faxed by: Du Vance Date faxed: 02/23/18 Time Faxed: [phone]
--- NOTE | 2018-02-23 17:42 | SOCIAL WORKER PROG NOTE PSYCH ---
Social Work Progress Note Faxed Referral(s) Referred To: [facility] Transition of Care Documents sent: Health Summary Faxed to: [facility] Fax #: [phone] Faxed by: Renetta Date faxed: 02/23/18 Time Faxed: [phone] Comment: Debra Iglesias[facility]
--- NOTE | 2018-02-26 09:15 | SOCIAL WORKER PROG NOTE PSYCH ---
Social Work Progress Note Progress Note Psychiatric CHW Note Determination Status: DISCHARGE COMPLETED Thank you. You have completed your discharge for this episode of care. Member Name Member ID Member Subscriber Name Subscriber ID FEI DAVE [id number] FEI DAVE [id number] Related Authorization # Related Client Authorization # Discharge # Discharge Date [id number] 02/23/2018 Level of Service Type of Service Level Of Care Type of Care IP - INPATIENT/HLOC P - MENTAL HEALTH I - INPATIENT CIP - INPATIENT HOSPITAL - INPATIENT HOSPITAL Provider Name & Address Provider ID Provider Alternate ID DIMPLE BRENDEN [id number] [address] [place] [phone]
== END 2018-02-23 19:14 | DRG 751 ==
LOC: ERH 17:34 → ERHI 20:37 → CP SOUTH 20:37 → ENTRNSPT 22:30 → EDTRNSPTSTS 22:33 → EDTRNSPT 22:33 → CMPTRNSPT 22:41 → CP SOUTH 22:43 → ENRESERV 23:59 → CP SOUTH 02-19 10:27
PROVIDERS: Physician Assistant
DX: F29 Unspecified psychosis not due to a substance or known physiological condition (principal); F14.90 Cocaine use, unspecified, uncomplicated
CPT/HCPCS: 80307; 81003; 93005; 93010; G0480; J0515; J1630; J3490; Q0175